=== PATIENT | female | born 1960 | race Caucasian/White ===

== ENCOUNTER 2020-11-08 13:17 | Outpatient (CLI) | payer MEDICARE, MEDICAID, SELFPAY ==
--- NOTE | 2020-11-08 13:48 | US_ITS ---
WS: [id number] ULTRASOUND THYROID TECHNIQUE: Ultrasound of the thyroid. CLINICAL INFORMATION: THYROID NODULE COMPARISON: None. FINDINGS: Thyroid: Right and left thyroid lobes are normal in size and echotexture. Several complex bilateral t hyroid nodules. Right thyroid lobe: 4.0 cm x 2.3 cm x 2.3 cm Largest right-sided nodule mid thyroid measures 15 x 8 x 8 mm with small microcalcifications. Additio nal similar-appearing mixed echogenicity subcentimeter nodules with echogenic calcifications. Nodule is suspicious for papillary thyroid carcinoma. Recommend FNA of the largest nodule. Left thyroid lobe: 3.6 cm x 1.8 cm x 1.7 cm. Largest hypoechoic solid left side lymph node in the mid thyroid measures 7.7 x 6.6 x 4.2 mm. Isthmus: 0.2 mm. Cervical lymphadenopathy: Normal appearing submandibular lymph nodes US/US thyroid 85989 IMPRESSION: 1. Solid mixed echogenicity right sided thyroid nodules the largest measuring 15 x 8 x 8 mm with small microcalcifications suspicious for papillary thyroid c arcinoma. Recommend further evaluation with ultrasound-guided biopsy. 2. Hypoechoic solid left sided nodule in the mid thyroid measures 7.7 x 6.6 x 4.2 mm. Recommend 12 month follow-up. 3. Additional subcentimeter satellite nodules in the right thyroid also with m ixed echogenicity and microcalcifications.
[2020-11-08 14:54] LABS: Basophils % 0.4 %; Eosinophils # 0.1 10^3/uL (0.0-0.8); Hematocrit 41.6 % (37.0-47.0); Hemoglobin 14.4 g/dL (11.5-15.3); Lymphocytes # 3.1 10^3/uL (0.8-4.8); Lymphocytes % 44.1 %; Mean Corpuscular HGB Conc 34.6 g/dL (30.0-36.0); Mean Corpuscular Hemoglobin 33.8 pg (28.0-34.0); Mean Corpuscular Volume 97.7 fL (81-99); Mean Platelet Volume 11.6 fL (7.4-10.4); Monocytes # 0.8 10^3/uL (0.2-0.9); Monocytes % 10.6 %; Neutrophils # 3.01 10^3/uL (1.8-7.7); Neutrophils % 42.6 %; Nucleated Red Blood Cells % 0 %; Platelet Count 217 10^3/cmm (130-400); Red Blood Count 4.26 10^6/uL (4.1-5.3); Red Cell Distribution Width 12.1 % (12.1-15.1); White Blood Count 7.1 10^3/uL (4.0-10.0)
[2020-11-08 15:13] LABS: Add Urine Microscopic? YES; Bilirubin Urine Neg (Negative); Blood Urine Neg (Negative); Glucose Urine UA Norm (Normal); Ketones Urine 1+ (Negative); Leukocyte Esterase Urine Negative (Negative); Nitrate Urine Negative (Negative); Protein Urine Neg (Negative); Urine Appearance Clear (CLEAR); Urine Color Yellow (Yellow); Urobilinogen Urine 1 mg/dL (Negative); pH Urine 7 (5-7)
[2020-11-08 15:20] LABS: Chol HDL Ratio 3.65 mg/dL (0.0-4.40); Cholesterol 157 mg/dL (0-200); HDL Cholesterol 43 mg/dL (60-100); LDL Cholesterol Calculated 83 mg/dL (50-129); LDL HDL Ratio 1.93 RATIO (0.00-3.22); Thyroid Stimulating Hormone 0.61 uIU/mL (0.27-4.20); Triglycerides 153 mg/dL (0-150)
[2020-11-08 16:07] LABS: Estmated Average Glucose 111; Hemoglobin A1C 5.5 % (4.0-6.0)
[2020-11-08 17:22] LABS: Add Urine Culture? No; Bacteria Urine TRACE /hpf; Mucus Urine 1+ /hpf; RBC Urine 0-4 /hpf (0-2); WBC Urine 0-4 /hpf (0-5)
[2020-11-15 09:21] LABS: Vit D 1,25 (Oh)2, Total 36 pg/mL (18-72); Vit D2 1,25 (Oh)2 <8 pg/mL; Vit D3 1,25 (Oh)2 36 pg/mL
== END 2020-11-08 13:18 | disposition home or self-care (01) ==
LOC: US 13:46
PROVIDERS: PCP Nurse Practitioner Family; Visit Provider Nurse Practitioner Family
DX: M79.7 Fibromyalgia (principal); M15.0 Primary generalized (osteo)arthritis; M85.80 Other specified disorders of bone density and structure, unspecified site; E04.9 Nontoxic goiter, unspecified
CPT/HCPCS: 36415; 76536; 80061; 81001; 82652; 83036; 84443; 85025

== ENCOUNTER → 2020-12-26 09:58 | Outpatient (BNVA) | payer MEDICARE, MEDICAID, SELFPAY | PROVIDERS: PCP Nurse Practitioner Family; Visit Provider Internal Medicine Rheumatology | DX: M25.50 Pain in unspecified joint (principal); M17.0 Bilateral primary osteoarthritis of knee; M79.7 Fibromyalgia; Z79.899 Other long term (current) drug therapy; Z11.59 Encounter for screening for other viral diseases; Z11.1 Encounter for screening for respiratory tuberculosis; Z71.89 Other specified counseling; F17.200 Nicotine dependence, unspecified, uncomplicated | CPT/HCPCS: 99204 ==

== ENCOUNTER 2020-12-31 10:58 | Outpatient (CLI) | payer MEDICARE, MEDICAID, SELFPAY ==
--- NOTE | 2020-12-31 11:13 | XR_ITS ---
WS: [email or web address] Exam: XR hand RT min 3V* [id number] Date/Time of Exam: 12/31/2020 11:45 AM Reason For Exam: M19.90 - Unspecified osteoarthritis, unspecified site No acute fracture or dislocation. There is moderate degenerative change in the IP joints. This is mos t severe in the DIP joint of the index finger with [id number] articulation. There is moderate degen erative change at the CMC joint of the thumb. No soft tissue foreign bodies are seen. Slight deformit y of the distal index finger. XR/XR hand RT min 3V* [id number] IMPRESSION: 1. Degenerative changes as detailed above. 2. No fracture or other significant finding.
--- NOTE | 2020-12-31 11:13 | XR_ITS ---
WS: [email or web address] Exam: XR knee RT 3V* [id number] Date/Time of Exam: 12/31/2020 11:45 AM Reason For Exam: M19.90 - Unspecified osteoarthritis, unspecified site No fracture or dislocation. The joint compartments are preserved. No joint effusion. Small bone infar ct seen along the distal femur. XR/XR knee RT 3V* 03146 IMPRESSION: 1. Negative right knee. 2. Small bone infarct seen in the distal femur
--- NOTE | 2020-12-31 11:13 | XR_ITS ---
WS: [email or web address] Exam: XR chest 2V* [id number] Date/Time of Exam: 12/31/2020 11:45 AM Reason For Exam: M79.7 - Fibromyalgia Comparison 04/17/2014. Findings: The lungs are clear and fully expanded. Costophrenic angles are sharp. No infiltrates. Bronchovascula r relief appears normal. Cardiac silhouette is unremarkable. Bony elements are intact. XR/XR chest 2V* [id number] IMPRESSION: Unremarkable chest radiograph.
--- NOTE | 2020-12-31 11:13 | XR_ITS ---
WS: [email or web address] Exam: XR foot RT min 3V* [id number] Date/Time of Exam: 12/31/2020 11:45 AM Reason For Exam: M19.90 - Unspecified osteoarthritis, unspecified site No acute fracture or dislocation. Degenerative narrowing of the first MP joint. No soft tissue foreig n bodies are seen. XR/XR foot RT min 3V* 73529 IMPRESSION: 1. Mild degenerative changes as above. 2. No fracture or other significant finding.
--- NOTE | 2020-12-31 11:13 | XR_ITS ---
WS: [email or web address] Exam: XR foot LT min 3V* 65051 Date/Time of Exam: 12/31/2020 11:45 AM Reason For Exam: M19.90 - Unspecified osteoarthritis, unspecified site No acute fracture or dislocation. There is mild degenerative change at the first MP joint. Soft tissu e prominence seen along the medial aspect of the great toe. 1 mm metallic soft tissue foreign body se en in the lateral plantar soft tissues of the forefoot. XR/XR foot LT min 3V* 46688 IMPRESSION: 1. No fracture or dislocation. Minimal degenerative changes. 2. Soft tissue swelling of the medial aspect of the great toe. 3. 1 mm soft tissue foreign body seen in the plantar soft tissues of the latera l forefoot.
--- NOTE | 2020-12-31 11:13 | XR_ITS ---
WS: [email or web address] Exam: XR hand LT min 3V* [id number] Date/Time of Exam: 12/31/2020 11:45 AM Reason For Exam: M19.90 - Unspecified osteoarthritis, unspecified site No acute fracture or dislocation. There are degenerative changes of the IP joints most severe involvi ng the DIP joint of the index finger. Moderate DJD at the CMC joint of the thumb. No soft tissue fore ign bodies are seen. XR/XR hand LT min 3V* [id number] IMPRESSION: 1. Degenerative changes as detailed above. 2. No fracture or dislocation noted.
--- NOTE | 2020-12-31 11:13 | XR_ITS ---
WS: [email or web address] Exam: XR knee LT 3V* [id number] Date/Time of Exam: 12/31/2020 11:45 AM Reason For Exam: M19.90 - Unspecified osteoarthritis, unspecified site No fracture or dislocation. The joint compartments are relatively well maintained. No joint effusion. Small bone infarcts seen in the lower femur and upper tibia. XR/XR knee LT 3V* [id number] IMPRESSION: 1. Unremarkable left knee. 2. Small bone infarcts seen in the upper tibia in the lower femur.
--- NOTE | 2020-12-31 11:13 | XR_ITS ---
WS: [email or web address] Exam: XR pelvis 1-2V* [id number] Date/Time of Exam: 12/31/2020 11:45 AM Reason For Exam: M19.90 - Unspecified osteoarthritis, unspecified site Findings: There is no sign of fracture or dislocation. Articular relationships are intact. Adjacent soft tiss ue structures are unremarkable. XR/XR pelvis 1-2V* 87644 Impression: Negative pelvis.
[2020-12-31 12:41] LABS: Basophils % 0.1 %; Hematocrit 40.4 % (37.0-47.0); Hemoglobin 13.4 g/dL (11.5-15.3); Lymphocytes # 2.1 10^3/uL (0.8-4.8); Lymphocytes % 23.9 %; Mean Corpuscular HGB Conc 33.2 g/dL (30.0-36.0); Mean Corpuscular Hemoglobin 32.8 pg (28.0-34.0); Mean Corpuscular Volume 98.8 fl (81-99); Mean Platelet Volume 12.4 fL (7.4-10.4); Monocytes # 0.6 10^3/uL (0.2-0.9); Monocytes % 7.3 %; Neutrophils # 5.93 10^3/uL (1.8-7.7); Nucleated Red Blood Cells % 0 %; Platelet Count 217 10^3/cmm (130-400); Red Blood Count 4.09 10^6/uL (4.1-5.3); Red Cell Distribution Width 12.2 % (12.1-15.1); White Blood Count 8.7 10^3/uL (4.0-10.0)
[2020-12-31 13:33] LABS: 25 Hydroxy Vitamin D 30 ng/mL (30-100); Alanine Aminotransferase 25 U/L (0-33); Albumin Level 4.2 g/dL (3.5-5.2); Alkaline Phosphatase 95 IU/L (35-105); Aspartate Amino Transferase 29 U/L (0-32); C Reactive Protein 2.2 mg/L (0.0-4.9); Globulin 2.1 g/dL (1.3-4.6); Total Bilirubin 0.2 mg/dL (0.15-1.2); Total Protein 6.3 g/dL (6.6-8.7)
[2020-12-31 13:43] LABS: Hepatitis B Core AB, Total Non-Reactive (Nonreactive); Hepatitis B Surface Antigen Non-Reactive (Nonreactive); Hepatitis C Virus Antibody Non-Reactive (Nonreactive)
[2020-12-31 14:24] LABS: Erythrocyte Sedimentation Rate 9 mm/hr (0-15)
[2021-01-01 11:41] LABS: COMPLEMENT COMPONENT C3C 106 mg/dL (83-193); COMPLEMENT COMPONENT C4C 13 mg/dL (15-57)
[2021-01-01 15:32] LABS: Cyclic Citrullinated Peptide <16 UNITS
[2021-01-02 15:36] LABS: COMPLEMENT, TOTAL (CH50) 41 U/mL (31-60)
[2021-01-02 17:23] LABS: Quantiferon Nil 0.01 IU/mL; Quantiferon TB Gold NEGATIVE (NEGATIVE)
[2021-01-03 12:47] LABS: THYROID PEROXIDASE ANTIBODIES <1 IU/mL (<9)
[2021-01-03 13:24] LABS: CENTROMERE B ANTIBODY <1.0 NEG AI (<1.0 NEG); JO-1 ANTIBODY <1.0 NEG AI (<1.0 NEG); RNP ANTIBODY <1.0 NEG AI (<1.0 NEG); SCL-70 ANTIBODY <1.0 NEG AI (<1.0 NEG); SJOGREN'S ANTIBODY (SS-A) <1.0 NEG AI (<1.0 NEG); SM ANTIBODY <1.0 NEG AI (<1.0 NEG); SS-B <1.0 NEG AI (<1.0 NEG)
[2021-01-04 12:38] LABS: ANA SCREEN, IFA POSITIVE (NEGATIVE)
[2021-01-08 12:26] LABS: DNA AB (DS) CRITHIDIA,IFA NEGATIVE (NEGATIVE)
== END 2020-12-31 10:59 | disposition home or self-care (01) ==
PROVIDERS: PCP Nurse Practitioner Family; Visit Provider Internal Medicine Rheumatology
DX: M19.90 Unspecified osteoarthritis, unspecified site (principal); M79.7 Fibromyalgia; K21.9 Gastro-esophageal reflux disease without esophagitis; Z79.899 Other long term (current) drug therapy; Z11.59 Encounter for screening for other viral diseases; Z11.1 Encounter for screening for respiratory tuberculosis
CPT/HCPCS: 36415; 71046; 72170; 73130; 73562; 73630; 80076; 82306; 82565; 85025; 85651; 86140; 86160; 86162; 86235; 86255; 86376; 86431; 86480; 86704; 86803; 87340

== ENCOUNTER 2021-01-31 08:40 | Emergency (ER) | payer MEDICARE, MEDICAID, SELFPAY ==
[2021-01-31 09:03] VITALS: BP 133/69; PULSE 72; RESP 16; TEMP 36.2; O2SAT 96; BMI 36.8
--- NOTE | 2021-01-31 09:12 | XR_ITS ---
WS: [email or web address] Right foot, 3 views, 01/31/2021 Clinical Data: injury with ecchymosis and swelling Comparison: Right foot, 12/31/2020. Findings: There is a fracture of the distal third of the right fifth metatarsal. No other fractures are seen. T he phalanges and tarsal bones are intact. The soft tissues are normal. There is minimal osteoarthritis of the right first MTP joint. XR/XR foot RT min 3V* [id number] Impression: Fracture of distal third of right fifth metatarsal.
--- NOTE | 2021-01-31 09:13 | ED_ITS ---
HPI - Extremity Problem General: Chief complaint: Extremity Injury, Lower Stated complaint: Pain in Rgt Foot Time Seen by Provider: 01/31/21 08:42 History of Present Illness: HPI Narrative: 60-year-old female comes to the ED with a right foot injury. Patient says this morning she got up early in the morning to take her dog out and she stopped on the threshold of the doorway causing her right foot pain. She states she felt a crack and went down to her knees due to the pain. She rates the pain currently a 10 out of 10. She cannot weight-bear on right foot since injury. Pain is located on the lateral aspect of the midfoot. Associated symptoms: Deny chest pain, fever(s) or rash Review of Systems Const: Denies: fever(s), chills or fatigue Eyes: Denies: change in vision or eye discomfort ENMT: Denies: throat pain, odynophagia, nasal discharge or nasal congestion Card: Denies: chest pain, palpitations, edema, swelling of feet/ankles, dyspnea on exertion or orthopnea Resp: Denies: dyspnea, productive cough or non-productive cough GI: Denies: abdominal pain, nausea, vomiting, diarrhea, constipation or hematochezia : Denies: flank pain, dysuria or hematuria Musc: Reports: extremity pain (Right foot) and extremity swelling (Right foot); Denies: neck pain or back pain Skin/Breast: Denies: rash or new lesions Neuro: Denies: headache(s), numbness in extremities or weakness in extremities PFSH ED PFSH: Medical History Depression Fibromyalgia GERD (gastroesophageal reflux disease) High risk medication use Hypertension IBS (irritable bowel syndrome) Immunization counseling Inflammatory arthritis Osteoarthritis Osteoarthritis of knees, bilateral Surgical History History of appendectomy Family History Other Cancer Diabetes Denies family history of CAD (coronary artery disease) Dementia Psychiatric illness Chronic kidney disease (CKD) Lung disease Stroke Social History Smoking and tobacco status: current every day smoker Alcohol intake: never Lives independently: Yes Household members: spouse and children Marital status: Physical Exam Const: COMMON NORMALS: no acute distress, patient oriented x3 and alert GENERAL APPEARANCE: cooperative and comfortable HENMT: COMMON NORMALS: normocephalic HEAD & SCALP: normocephalic MOUTH: Normal oral and palatal mucosa present THROAT: posterior oropharynx normal and uvula midline Neck/C-Spine: COMMON NORMALS: supple GENERAL: Yes normal visual inspection Resp: COMMON NORMALS: normal respiratory effort, No retractions, No use of accessory muscles and clear to auscultation bilaterally AUSCULTATION: clear to auscultation bilaterally Cardio: COMMON NORMALS: regular rate, regular rhythm, S1 normal heart sound present, S2 normal heart sound present, No gallops present (Cardio), No clicks present (Cardio), No murmurs present (Cardio) and Peripheral pulses 2+ throughout RATE: regular rate RHYTHM: regular rhythm HEART SOUNDS: S1 normal heart sound present and S2 normal heart sound present PERIPHERAL PULSES: Peripheral pulses 2+ throughout GI: COMMON NORMALS: Normal to inspection, nondistended, normoactive bowel sounds present, Soft to palpation, non-tender and no masses PALPATION: Yes Soft to palpation : COMMON NORMALS: Yes no CVA tenderness BLADDER/KIDNEY EXAM: Yes no CVA tenderness Back/Pelvis: COMMON NORMALS: no CVA tenderness Extremity: COMMON NORMALS: normal to inspection RIGHT LOWER EXTREMITY: Yes foot & digits Right foot and digits: Yes inspection (Ecchymosis and swelling to lateral midfoot region), Yes palpation (Tenderness to the lateral midfoot region), Yes ROM (Limited movement in digits due to pain.) and Yes neurovascular exam (Neurovascular tact.) Neuro: COMMON NORMALS: patient oriented x3 and moves all extremities SENSORIUM/ORIENTATION: Yes alert Skin: GENERAL SKIN EXAM: dry skin Course Vital Signs: Vital signs: Vital Signs Temperature 97.1 F L 01/31/21 09:03 Pulse Rate 68 01/31/21 10:28 Respiratory Rate 16 01/31/21 10:28 Blood Pressure 150/96 01/31/21 10:28 Pulse Oximetry 95 01/31/21 10:28 MDM - Extremity (Nontraumatic) MDM Narrative: Medical decision making narrative: Patient is a 60-year-old female comes to the ED with right foot pain. Patient has some swelling and e cchymosis to the lateral midfoot region. Neurovascular tact. X-ray shows fracture of distal third of right fifth metatarsal. I placed order with case management for patient be referred to the maintenance job titles Dr. Acevedo. Patient diagnosed with metatarsal fracture of the right foot. Patient was put in a boot and given crutches and discharged with a prescription for hydrocodone for pain. Return to ED precautions given. Patient was told that case management will contact them the next several days to set up an appointment with the maintenance job titles. Patient understood agree with plan. Imaging Data^: Xray Ortho: Attestation: I personally reviewed and interpreted this imaging study as follows: Radiologist's impression: [facility] [employer] [facility] [place] [address] XRay Report Signed Patient: Mel Calderon Unit #: [id number] : [id number] Age/Sex: 60 / F ADM Date: 01/31/21 Loc: ER Room/Bed: Attending Dr: Ordering Provider/Ordering MD: Umang Brown Date of Service: 01/31/21 Procedure(s): XR foot RT min 3V* 47585 Accession Number(s): [id number] Report Number: [id number] WS: [email or web address] Right foot, 3 views, 01/31/2021 Clinical Data: injury with ecchymosis and swelling Comparison: Right foot, 12/31/2020. Findings: There is a fracture of the distal third of the right fifth metatarsal. No other fractures are seen. The phalanges and tarsal bones are intact. The soft tissues are normal. There is minimal osteoarthritis of the right first MTP joint. XR/XR foot RT min 3V* 15850 Impression: Fracture of distal third of right fifth metatarsal. Dictated By: Saloni Sneed MD Signed By: Saloni Sneed MD Signed Date/Time: 01/31/21926 DD/ 5 Discharge Plan Discharge Patient Disposition: Home Clinical Impression: Metatarsal bone fracture Qualifiers: Encounter type: initial encounter Metatarsal bone: fifth Fracture type: closed Fracture alignment: nondisplaced Laterality: right Qualified Code(s): S92.354A - Nondisplaced fracture of fifth metatarsal bone, right foot, initial encounter for closed fracture Condition: Stable Prescriptions: No Action pregabalin [Lyrica] 50 mg capsule 50 mg PO DAILY RF: 0 tramadol 50 mg tablet 50 mg PO TID PRNRF: 0 hydroxychloroquine 200 mg tablet 200 mg PO BID Qty: 60 RF: 3 pantoprazole 40 mg tablet,delayed release (DR/EC) See Rx Instructions PO DAILY Qty: 30 RF: 3 prednisone 10 mg tablet See Rx Instructions PO DAILY Qty: 30 RF: 1 diltiazem HCl 180 mg capsule,extended release 24 hr 180 mg PO DAILY RF: 0 furosemide 20 mg tablet 20 mg PO DAILY RF: 0 cetirizine 10 mg tablet 10 mg PO DAILY PRNRF: 0 metoprolol tartrate 50 mg tablet 50 mg PO DAILY RF: 0 prednisone 10 mg tablet See Rx Instructions PO DAILY Qty: 65 RF: 1 folic acid 1 mg tablet 1 mg PO DAILY Qty: 90 RF: 3 methotrexate sodium 2.5 mg tablet See Rx Instructions PO .Q7days Qty: 30 RF: 0 baclofen 10 mg tablet 10 mg PO TID PRN (Reason: severe pain/spasms) Qty: 90 RF: 0 Discharge Orders: Discharge ED (Routine); Ordered 01/31/21 Ordered By: Umang Brown Referrals: Adilene Jamison OUTSIDE SALES EXECUTIVE [Primary Care Provider] - Discharge Diet: Regular Discharge Activity: Limit activity as instructed and Use walker/crutches as instructed Patient Instructions: Foot Fracture in Adults (ED), Opioid Safety Activity Restrictions/Additional Instructions: Follow-up with medical provider as directed. Case management will be contacting you in the next several days set up an appointment with Dr. Acevedo the maintenance job titles for reevaluation. Wear boot/stiff soled shoe when up and ambulating. Use crutches as needed to help with ambulation. Take medications as prescribed. Return to the ER or your medical provider if condition worsens. Please read and understand discharge instructions. Thank you for choosing [facility] for your healthcare needs today. Please realize this is an emergency room and that we are providing you with a medical screening exam and this may not be complete and all inclusive of all the testing and or work up that you may need to determine your ailment or severity of your illness. It is very important that you follow up as instructed or that you return to the Emergency Department should you have concerns or if your condition changes or worsens in any way. Coding Level of Care Code ED Human Machine Interface Engineer for Viridiana Fwdiego Exam Comprehensive
[2021-01-31] MEDS: HYDROcodone-acetaminophen 5-325 mg Tablet 1 TAB PO (09:44)
[2021-01-31 09:45] VITALS: BP 127/46; PULSE 73; RESP 18; O2SAT 92
--- NOTE | 2021-01-31 10:01 | DCPLANNER ---
information systems manager had message to schedule a follow up appointment for patient with ortho. information systems manager called the ortho clinic, spoke with Jeane, gave clinic patients information. information systems manager was told that patients information would be printed and reviewed. Clinic will call patient with appointment information.
--- NOTE | 2021-01-31 10:04 | DCPLANNER ---
arts manager had message to schedule a follow up appointment for patient with ortho. arts manager called the ortho clinic, spoke with Jeane, gave clinic patients information. arts manager was told that patients information would be printed and reviewed. Clinic will call patient with appointment information.
[2021-01-31 10:28] VITALS: BP 150/96; PULSE 68; RESP 16; O2SAT 95
--- NOTE | 2021-02-01 10:31 | DCPLANNER ---
Patient has a followup appointment scheduled for Monday, February 01, 2021 at 1:[address] Acevedo at [facility]. Clinic will call patient with appointment information.
--- NOTE | 2021-03-21 14:01 | DCPLANNER ---
Patient had a follow up appointment scheduled for 02.01.[address] Acevedo at [facility] - patient did attend appointment.
== END 2021-01-31 10:28 | disposition home or self-care (01) ==
PROVIDERS: Emergency Provider Physician Assistant; PCP Nurse Practitioner Family
DX: S92.354A Nondisplaced fracture of fifth metatarsal bone, right foot, initial encounter for closed fracture (principal); I10 Essential (primary) hypertension; F17.210 Nicotine dependence, cigarettes, uncomplicated; X58.XXXA Exposure to other specified factors, initial encounter
CPT/HCPCS: 73630; 99283; E0114

== ENCOUNTER 2021-02-01 14:20 | Outpatient (CLI) | payer MEDICARE, MEDICAID, SELFPAY | END 2021-02-01 14:21 | disposition home or self-care (01) | LOC: SPT 14:21 | PROVIDERS: PCP Nurse Practitioner Family; Visit Provider Podiatrist Foot & Ankle Surgery | DX: Z46.89 Encounter for fitting and adjustment of other specified devices (principal); S92.354D Nondisplaced fracture of fifth metatarsal bone, right foot, subsequent encounter for fracture with routine healing; X58.XXXD Exposure to other specified factors, subsequent encounter | CPT/HCPCS: 97760; L4361 ==

== ENCOUNTER → 2021-03-06 12:57 | Outpatient (BNVA) | payer MEDICARE, MEDICAID, SELFPAY | PROVIDERS: PCP Nurse Practitioner Family; Visit Provider Podiatrist Foot & Ankle Surgery | DX: S92.354D Nondisplaced fracture of fifth metatarsal bone, right foot, subsequent encounter for fracture with routine healing (principal); X58.XXXD Exposure to other specified factors, subsequent encounter | CPT/HCPCS: 73630 ==

== ENCOUNTER → 2021-03-26 13:55 | Outpatient (BNVA) | payer MEDICARE, MEDICAID, SELFPAY | PROVIDERS: PCP Nurse Practitioner Family; Visit Provider Podiatrist Foot & Ankle Surgery | DX: S92.354D Nondisplaced fracture of fifth metatarsal bone, right foot, subsequent encounter for fracture with routine healing (principal); X58.XXXD Exposure to other specified factors, subsequent encounter | CPT/HCPCS: 73630 ==

== ENCOUNTER 2021-04-19 10:57 | Outpatient (CLI) | payer MEDICARE, MEDICAID, SELFPAY ==
--- NOTE | 2021-04-19 11:03 | FL_ITS ---
WS: [email or web address] MODIFIED BARIUM SWALLOW HISTORY: Other dysphagia FLUOROSCOPY TIME: 2.5 minutes. Modified barium swallow was performed by the speech pathologist. Fluoroscopy was provided with the pa tient in a lateral projection. Multiple food consistencies were provided. Patient was able to swallow all food consistencies without difficulty. No aspiration or laryngeal pen etration. Due to new dentures patient was only able to swallow and prepare bolus of small amounts of food. Barium tablet was also swallowed without difficulty. FL/FL barium swallow modifd 29019 IMPRESSION: 1. No aspiration or laryngeal penetration. 2. Very slight delay in swallowing and forming a food bolus. Please see speech therapist report also for recommendations.
== END 2021-04-19 10:58 | disposition home or self-care (01) ==
LOC: RAD 10:59
PROVIDERS: PCP Nurse Practitioner Family; Visit Provider Otolaryngology
DX: R13.10 Dysphagia, unspecified (principal)
CPT/HCPCS: 74230; 92611

== ENCOUNTER 2021-04-26 08:17 | Outpatient (CLI) | payer MEDICARE, MEDICAID, SELFPAY ==
--- NOTE | 2021-04-26 08:30 | US_ITS ---
WS: [email or web address] ULTRASOUND-GUIDED RIGHT THYROID NODULE FNA HISTORY: RIGHT thyroid nodule. Procedure, risks, and complications were explained to the patient. Consent has been obtained. Prior imaging study 11/08/2020 reviewed. The skin is cleansed with ChloraPrep and anesthetized with 1% buffered lidocaine. FNA performed with 25 gauge needles. electronic technologist is present to fix slides. Note: This nodule is highly suspicious for papillary thyroid carcinoma. There are a few additional ve ry small nodules within the RIGHT thyroid that are similar in appearance to the larger nodule. If thi s nodule is not positive for carcinoma consider surgical removal or imaging close follow-up. US/US biopsy/FNA thyroid 63160 IMPRESSION: Uncomplicated FNA of a RIGHT thyroid nodule. Final pathology results pending.
== END 2021-04-26 08:18 | disposition home or self-care (01) ==
LOC: RAD 08:23
PROVIDERS: PCP Nurse Practitioner Family; Visit Provider Otolaryngology
DX: E04.2 Nontoxic multinodular goiter (principal); R13.10 Dysphagia, unspecified
CPT/HCPCS: 10005; 88173; 88305

== ENCOUNTER 2021-05-21 09:35 | Outpatient (CLI) | payer MEDICARE, MEDICAID, SELFPAY ==
[2021-05-21 10:25] LABS: Basophils % 0.3 %; Eosinophils % 0.2 %; Hematocrit 44.2 % (37.0-47.0); Hemoglobin 14.5 g/dL (11.5-15.3); Lymphocytes # 2.2 10^3/uL (0.8-4.8); Lymphocytes % 21.9 %; Mean Corpuscular HGB Conc 32.8 g/dL (30.0-36.0); Mean Corpuscular Hemoglobin 33.3 pg (28.0-34.0); Mean Corpuscular Volume 101.6 fl (81-99); Mean Platelet Volume 11.6 fL (7.4-10.4); Monocytes # 0.8 10^3/uL (0.2-0.9); Monocytes % 7.5 %; Neutrophils # 6.95 10^3/uL (1.8-7.7); Neutrophils % 69.7 %; Nucleated Red Blood Cells % 0 %; Platelet Count 261 10^3/cmm (130-400); Red Blood Count 4.35 10^6/uL (4.1-5.3); Red Cell Distribution Width 12.9 % (12.1-15.1)
[2021-05-21 10:45] LABS: Alanine Aminotransferase 17 U/L (0-33); Albumin Level 4.3 g/dL (3.5-5.2); Alkaline Phosphatase 91 IU/L (35-105); Aspartate Amino Transferase 25 U/L (0-32); C Reactive Protein 0.4 mg/L (0.0-4.9); Glomerular Filtration Rate 84.8 mL/min (90-130); Total Bilirubin 0.3 mg/dL (0.15-1.2); Total Protein 6.3 g/dL (6.6-8.7)
== END 2021-05-21 09:36 | disposition home or self-care (01) ==
LOC: LAB 10:11
PROVIDERS: PCP Nurse Practitioner Family; Visit Provider Internal Medicine Rheumatology
DX: M19.90 Unspecified osteoarthritis, unspecified site (principal); Z79.899 Other long term (current) drug therapy
CPT/HCPCS: 36415; 80076; 82565; 85025; 86140

== ENCOUNTER 2021-07-10 09:05 | Outpatient (CLI) | payer MEDICARE, MEDICAID, SELFPAY ==
--- NOTE | 2021-07-10 | XR_ITS ---
WS: [email or web address] Right shoulder, 4 views, 07/10/2021 Clinical Data: TRAUMA, FALL, RIGHT SHOULDER AND HUMERUS PAIN Comparison: None. Findings: No fractures or dislocations are seen. The AC joint is normal. The adjacent right clavicle, right sca pula and ribs are normal. The soft tissues are unremarkable. XR/XR shoulder RT min 2V* 31778 Impression: Negative right shoulder.
--- NOTE | 2021-07-10 | XR_ITS ---
WS: [email or web address] Right arm and humerus, 2 views, 07/10/2021 Clinical Data: TRAUMA, FALL, RIGHT SHOULDER AND HUMERUS PAIN Comparison: None. Findings: No fractures or dislocations are seen. The shaft of the humerus is intact. The soft tissues are norm al. XR/[place] [id number] Impression: Negative right arm and humerus.
--- NOTE | 2021-07-10 09:39 | XR_ITS ---
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 Findings: No fractures or dislocations are seen. The SI joints and pubic symphysis are intact. The soft tissues are not remarkable. The hips are normal. The bladder is partly full. XR/XR pelvis 1-2V* 31887 Impression: Negative for fracture.
--- NOTE | 2021-07-10 09:39 | XR_ITS ---
WS: [email or web address] Lumbar spine, 3 views, 07/10/2021 Clinical Data: Z79.899 - Other alf (current) drug therapy Comparison: Lateral lumbar spine, 03/04/2017. Findings: No compression fractures or subluxation is seen. No disc space narrowing is seen. The transverse proc esses and SI joints are normal. There is minimal anterior superior osteoarthritic spurring L3-L5 No limitation of motion or subluxation on flexion or extension is seen. XR/XR lumbar spine 2-3V* 22034 Impression: 1. Minimal spurring at the anterior superior margins of L-1-L5. 2. Negative for limitation of motion or subluxation on flexion or extension.
== END 2021-07-10 09:06 | disposition home or self-care (01) ==
PROVIDERS: PCP Nurse Practitioner Family; Referring Provider Nurse Practitioner Family; Visit Provider Internal Medicine Rheumatology
DX: M25.511 Pain in right shoulder (principal); M25.521 Pain in right elbow; Z79.899 Other long term (current) drug therapy; M06.9 Rheumatoid arthritis, unspecified
CPT/HCPCS: 72100; 72170; 73030; 73060

== ENCOUNTER → 2021-07-25 09:00 | Outpatient (BNVA) | payer MEDICARE, MEDICAID, SELFPAY | PROVIDERS: PCP Nurse Practitioner Family; Visit Provider Internal Medicine Rheumatology | DX: M05.79 Rheumatoid arthritis with rheumatoid factor of multiple sites without organ or systems involvement (principal); M47.816 Spondylosis without myelopathy or radiculopathy, lumbar region; Z79.899 Other long term (current) drug therapy; M79.7 Fibromyalgia; Z71.89 Other specified counseling | CPT/HCPCS: 99214 ==

== ENCOUNTER 2022-01-16 12:53 | Outpatient (CLI) | payer MEDICARE, MEDICAID, SELFPAY ==
[2022-01-16 13:43] LABS: Basophils % 0.2 %; Eosinophils % 0.1 %; Hematocrit 43.7 % (37.0-47.0); Hemoglobin 14.4 g/dL (11.5-15.3); Lymphocytes # 1.7 10^3/uL (0.8-4.8); Mean Corpuscular Hemoglobin 34.4 pg (28.0-34.0); Mean Corpuscular Volume 104.5 fl (81-99); Mean Platelet Volume 11.5 fL (7.4-10.4); Monocytes # 0.9 10^3/uL (0.2-0.9); Neutrophils # 8.04 10^3/uL (1.8-7.7); Nucleated Red Blood Cells % 0 %; Platelet Count 249 10^3/cmm (130-400); Red Blood Count 4.18 10^6/uL (4.1-5.3); Red Cell Distribution Width 13.1 % (12.1-15.1); White Blood Count 10.7 10^3/uL (4.0-10.0)
[2022-01-16 14:05] LABS: Alanine Aminotransferase 21 U/L (0-33); Albumin Level 4.4 g/dL (3.5-5.2); Alkaline Phosphatase 98 U/L (35-105); Aspartate Amino Transferase 26 U/L (0-32); Globulin 2.2 g/dL (1.3-4.6); Glomerular Filtration Rate 72.4 mL/min (90-130); Total Bilirubin 0.2 mg/dL (0.15-1.2); Total Protein 6.6 g/dL (6.6-8.7)
== END 2022-01-16 12:54 | disposition home or self-care (01) ==
LOC: LAB 12:53
PROVIDERS: PCP Internal Medicine; Visit Provider Internal Medicine Rheumatology
DX: M05.79 Rheumatoid arthritis with rheumatoid factor of multiple sites without organ or systems involvement (principal); M17.0 Bilateral primary osteoarthritis of knee; M47.816 Spondylosis without myelopathy or radiculopathy, lumbar region; M79.7 Fibromyalgia; M89.8X0 Other specified disorders of bone, multiple sites; Z79.899 Other long term (current) drug therapy
CPT/HCPCS: 80076; 82565; 85025; 86140; 99214

== ENCOUNTER 2022-05-14 09:56 | Emergency (ER) | payer MEDICARE, MEDICAID, SELFPAY ==
[2022-05-14 09:59] VITALS: BP 123/76; PULSE 80; RESP 17; TEMP 36.6; O2SAT 96; BMI 36.0
--- NOTE | 2022-05-14 10:15 | XR_ITS ---
WS: [email or web address] Left shoulder, 2 views, 05/14/2022 Clinical Data: pain/injury? Comparison: None. Findings: No fractures or dislocations are seen. The AC joint is normal. The adjacent left clavicle, left scapu la and ribs are normal. The soft tissues are unremarkable. XR/XR shoulder LT min 2V* 04081 Impression: Negative left shoulder.
--- NOTE | 2022-05-14 10:23 | W.ED.EXTPRO ---
HPI - Extremity Problem General: Chief complaint: Extremity Problem,Nontraumatic Stated complaint: left shoulder injury Time Seen by Provider: 05/14/22 10:06 Source: patient Mode of arrival: ambulatory Limitations: no limitations History of Present Illness: Patient is a nice 61-year-old female presents to ED today with a complaint of left shoulder pain that initially began gradually approximately 3 weeks ago. She states she initially attributed it to RA pain. She has been treating with ice/heat without much relief in her discomfort. Patient states over the past 2 to 3 days pain has become pretty unbearable. She states significant discomfort with any form of range of motion. She has not noticed any redness, swelling to her extremity. She does not have any neck discomfort. Is not having any radicular symptoms down into her arm. Reports one previous similar episode 7 years ago in which she received an intra-articular steroid injection which was beneficial. MD Complaint: joint pain Onset (ago): week(s) Pain Consistency: constant Location: left and upper extremity (shoulder) Radiation: none Relieving factors: immobilization Exacerbating factors: range of motion Associated symptoms: Reports no associated symptoms; Deny chest pain, fever(s) or rash Review of Systems Const: Denies: fever(s), chills, body aches, fatigue or malaise Card: Denies: chest pain Resp: Denies: dyspnea Musc: Reports: joint pain (L shoulder); Denies: neck pain, back pain, extremity pain, extremity swelling, joint swelling, joint redness or joint warmth Skin/Breast: Denies: rash Neuro: Denies: headache(s), numbness in extremities, weakness in extremities or sensory changes [facility] ED PFSH: Medical History Bronchitis Degenerative joint disease (DJD) of lumbar spine Depression Fibromyalgia GERD (gastroesophageal reflux disease) High risk medication use Hypertension IBS (irritable bowel syndrome) Immunization counseling Inflammatory arthritis Osteoarthritis Seropositive rheumatoid arthritis of multiple sites Surgical History History of appendectomy Family History Other Cancer Diabetes Denies family history of CAD (coronary artery disease) Dementia Psychiatric illness Chronic kidney disease (CKD) Lung disease Stroke Social History Smoking and tobacco status: never smoked Alcohol intake: never Lives independently: Yes Household members: spouse and children Marital status: Physical Exam Const: COMMON NORMALS: no acute distress, patient oriented x3, no limitations and alert GENERAL APPEARANCE: cooperative NUTRITIONAL APPEARANCE: overweight ORIENTATION/CONSCIOUSNESS: Yes awake, Yes oriented to person, Yes oriented to place and Yes oriented to time HENMT: COMMON NORMALS: normocephalic and atraumatic HEAD & SCALP: normal to inspection, normocephalic and atraumatic Neck/C-Spine: COMMON NORMALS: full ROM GENERAL: Yes normal visual inspection CERVICAL SPINE: Yes cervical ROM normal, No pain with cervical ROM, No Cervical spine tenderness, No step off deformity, No Paracervical muscle tenderness and No Paracervical spasm Resp: COMMON NORMALS: normal respiratory effort and clear to auscultation bilaterally AUSCULTATION: clear to auscultation bilaterally Back/Pelvis: COMMON NORMALS: thoracic and lumbar spine normal to inspection, no thoracic nor lumbar tenderness and thoraco-lumbar ROM normal Extremity: COMMON NORMALS: capillary refill normal GENERAL: Yes normal exam except as noted LEFT UPPER EXTREMITY: Yes shoulder joint Left shoulder joint: Yes inspection (normal gross inspection of shoulder joint), Yes ROM (limited ROM in all rivas secondary to pain) and Yes neurovascular exam (normal) OTHER: discomfort elicited to superior medial edge of scapula as well as anterior glenohumeral joint line with ROM; NV intact Neuro: COMMON NORMALS: patient oriented x3, moves all extremities, no focal motor deficits and no sensory deficits noted SENSORIUM/ORIENTATION: Yes alert, Yes oriented to person, Yes oriented to place and Yes oriented to time Skin: COMMON NORMALS: no rashes or lesions noted GENERAL SKIN EXAM: no rashes or lesions noted Course Vital Signs: Vital signs: Vital Signs Temperature 97.8 F 05/14/22 09:59 Pulse Rate 80 05/14/22 09:59 Respiratory Rate 17 05/14/22 09:59 Blood Pressure 123/76 05/14/22 09:59 Pulse Oximetry 96 05/14/22 09:59 Oxygen Delivery Me thod 05/14/22 09:59 MDM - Extremity (Nontraumatic) Medical Decision Making XR read is negative. Will place patient on a Medrol Dosepak. She has been taking 800mg of Ibuprofen as well as her normal pain medications of Tramadol and/or Hydrocodone. She can continue these. She has an appointment with her PCP Dr. Rojas tomorrow that she can use her follow-up. Lab Data Radiology Impressions Shoulder X-Ray 05/14/22 10:15 Impression: Negative left shoulder. Discharge Plan Discharge Patient Disposition: Home Clinical Impression: Acute pain of left shoulder Condition: Stable Prescriptions: New Medrol (Corbin) 4 mg tablets,dose pack See Rx Instructions .ROUTE .COMPLEX Qty: 21 0RF Rx Instructions: orally per package directions No Action capsaicin 0.075 % cream 1 applic topical TID Qty: 57 0RF Rx Instructions: do not wash area for at least 30 min after application diltiazem HCl 180 mg capsule,extended release 24 hr 180 mg PO DAILY furosemide 20 mg tablet 20 mg PO DAILY PRN (Reason: Edema) metoprolol tartrate 50 mg tablet 50 mg PO DAILY hydrocodone-acetaminophen 5-325 mg tablet 1 tab PO Q6H PRN (Reason: pain) 7 Days Qty: 40 0RF Humira Pen 40 mg/0.8 mL pen injector kit 40 mg SUBCUT Q7D Qty: 4 3RF ibuprofen 800 mg tablet 800 mg PO TID PRN (Reason: PAIN) albuterol sulfate 2.5 mg /3 mL (0.083 %) solution for nebulization 2.5 mg inhalation Q4H PRN (Reason: shortness of breath or wheezing) Qty: 90 0RF benzonatate 200 mg capsule 200 mg PO BID PRN (Reason: cough) Qty: 30 0RF clonazepam 1 mg tablet 1 mg PO BID Qty: 60 5RF fluoxetine 60 mg tablet 60 mg PO QAM Qty: 90 3RF cetirizine 10 mg tablet 10 mg PO DAILY PRN (Reason: Allergy Symptoms) Qty: 90 3RF baclofen 10 mg tablet 10 mg PO TID PRN (Reason: Spasms) Qty: 90 3RF Rx Instructions: TAKE 1 TABLET BY MOUTH THREE TIMES DAILY NEEDED FOR SEVERE PAIN OR SPASMS nystatin 100,000 unit/mL suspension See Rx Instructions .ROUTE .COMPLEX Qty: 140 0RF Dose Instruction: SWISH & SWALLOW 5 ML BY MOUTH 4 TIMES DAILY FOR 7 DAYS Rx Instructions: SWISH & SWALLOW 5 ML BY MOUTH 4 TIMES DAILY FOR 7 DAYS prednisone 10 mg tablet 10 mg PO DAILY Qty: 90 1RF hydrocodone-acetaminophen 5-325 mg tablet 1 tab PO Q6H PRN (Reason: pain) 30 Days Qty: 60 0RF Discharge Orders: Discharge ED (Routine); Ordered 05/14/22 Ordered By: Xiomy Banda Referrals: Pk Rojas MD [Primary Care Provider] - Activity Restrictions/Additional Instructions: You may continue taking 800 mg of ibuprofen like you have been doing in addition to your tramadol/hydrocodone as needed for severe pain. I am placing you on a Medrol Dosepak today. Please follow-up with Dr. Rojas tomorrow as scheduled. 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
[2022-05-14] MEDS: dexamethasone 10 mg/mL INJ 8 MG IM (10:45)
== END 2022-05-14 10:50 | disposition home or self-care (01) ==
PROVIDERS: Emergency Provider Physician Assistant; PCP Internal Medicine
DX: M25.512 Pain in left shoulder (principal); I10 Essential (primary) hypertension
CPT/HCPCS: 73030; 96372; 99284; J1100

== ENCOUNTER → 2022-07-09 08:54 | Outpatient (BNVA) | payer MEDICARE, MEDICAID, SELFPAY | PROVIDERS: PCP Internal Medicine; Visit Provider Internal Medicine Rheumatology | DX: M05.79 Rheumatoid arthritis with rheumatoid factor of multiple sites without organ or systems involvement (principal); Z79.899 Other long term (current) drug therapy; M47.816 Spondylosis without myelopathy or radiculopathy, lumbar region; M19.90 Unspecified osteoarthritis, unspecified site | CPT/HCPCS: 99214 ==

== ENCOUNTER → 2022-10-15 12:28 | Outpatient (BNVA) | payer MEDICARE, MEDICAID, SELFPAY | PROVIDERS: PCP Internal Medicine; Visit Provider Internal Medicine Rheumatology | DX: M05.79 Rheumatoid arthritis with rheumatoid factor of multiple sites without organ or systems involvement (principal); Z79.899 Other long term (current) drug therapy; M47.816 Spondylosis without myelopathy or radiculopathy, lumbar region; M19.90 Unspecified osteoarthritis, unspecified site | CPT/HCPCS: 99214 ==

== ENCOUNTER 2022-10-17 10:10 | Outpatient (CLI) | payer MEDICARE, MEDICAID, SELFPAY ==
[2022-10-17 10:29] LABS: Basophils % 0.4 %; Eosinophils % 0.3 %; Hematocrit 43.9 % (37.0-47.0); Hemoglobin 14.8 g/dL (11.5-15.3); Lymphocytes # 1.7 10^3/uL (0.8-4.8); Mean Corpuscular HGB Conc 33.7 g/dL (30.0-36.0); Mean Corpuscular Hemoglobin 35.2 pg (28.0-34.0); Mean Corpuscular Volume 104.3 fl (81-99); Mean Platelet Volume 11.1 fL (7.4-10.4); Monocytes # 0.4 10^3/uL (0.2-0.9); Neutrophils # 7.05 10^3/uL (1.8-7.7); Neutrophils % 76.9 %; Nucleated Red Blood Cells % 0 %; Platelet Count 228 10^3/cmm (130-400); Red Blood Count 4.21 10^6/uL (4.1-5.3); White Blood Count 9.2 10^3/uL (4.0-10.0)
--- NOTE | 2022-10-17 10:47 | XR_ITS ---
WS: [id number] Thoracic spine, 3 views, 10/17/2022 Clinical Data: M05.79 - Rheumatoid arthritis with rheumatoid factor of m... Comparison: None. Findings: No compression fractures are seen. The disc heights are normal. Osteoarthritic change of the thoracic vertebral bodies is minimal. There is a slight dextroscoliosis the upper thoracic spine. XR/XR thoracic spine 3V* [id number] Impression: Slight dextroscoliosis and minimal osteoarthritis of the thoracic spine.
[2022-10-17 10:50] LABS: Alanine Aminotransferase 15 U/L (0-33); Albumin Level 4.3 g/dL (3.5-5.2); Alkaline Phosphatase 89 U/L (35-105); Aspartate Amino Transferase 25 U/L (0-32); Globulin 2.1 g/dL (1.3-4.6); Glomerular Filtration Rate 84.5 mL/min (90-130); Total Bilirubin 0.2 mg/dL (0.15-1.2); Total Protein 6.4 g/dL (6.6-8.7)
== END 2022-10-17 10:11 | disposition home or self-care (01) ==
LOC: RAD 10:13
PROVIDERS: PCP Internal Medicine; Visit Provider Internal Medicine Rheumatology
DX: M05.79 Rheumatoid arthritis with rheumatoid factor of multiple sites without organ or systems involvement (principal); Z79.899 Other long term (current) drug therapy; M41.84 Other forms of scoliosis, thoracic region; M47.814 Spondylosis without myelopathy or radiculopathy, thoracic region
CPT/HCPCS: 36415; 72072; 80076; 82565; 85025; 86140

== ENCOUNTER → 2022-10-22 09:19 | Outpatient (BNVA) | payer MEDICARE, MEDICAID, SELFPAY | PROVIDERS: PCP Internal Medicine; Visit Provider Otolaryngology | DX: E04.1 Nontoxic single thyroid nodule (principal); R53.83 Other fatigue; R63.5 Abnormal weight gain; E04.2 Nontoxic multinodular goiter | CPT/HCPCS: 36415; 84439; 84443; 84480; 84481 ==

== ENCOUNTER → 2022-10-22 09:19 | Outpatient (BNVA) | payer MEDICARE, MEDICAID, SELFPAY | PROVIDERS: PCP Internal Medicine; Visit Provider Otolaryngology | DX: E04.1 Nontoxic single thyroid nodule (principal); E04.2 Nontoxic multinodular goiter; R53.83 Other fatigue; R63.5 Abnormal weight gain; Z68.34 Body mass index [BMI] 34.0-34.9, adult | CPT/HCPCS: 36415; 84439; 84443; 84480; 84481; 99214 ==

== ENCOUNTER 2022-11-24 08:25 | Outpatient (CLI) | payer MEDICARE, MEDICAID, SELFPAY ==
--- NOTE | 2022-11-24 | USR_ITS ---
PROCEDURE INFORMATION: Exam: US Soft Tissue Head and Neck, Thyroid Exam date and time: 11/24/2022 8:48 AM Age: 61 years old Clinical indication: Other: Thyroid nodule TECHNIQUE: Imaging protocol: Real-time ultrasound scan of the neck with image documentation. Exam focused on the thyroid. COMPARISON: US biopsy/FNA thyroid [id number] 04/26/2021 and thyroid ultrasound 11/08/2020. FINDINGS: The right lobe measures 4.2 x 1.8 x 2.5 cm. The left lobe measures 3.8 x 1.7 x 1.9 cm. The isthmus measures about 2 mm in thickness. There is a 6.0 x 6.5 x 4.2 mm hypoechoic nodule in the lower half of the left lobe which is slightly smaller than on the prior examination and likely benign. There is a 12.5 by 7.2 x 6.2 mm solid hypoechoic nodule in the upper pole of the right lobe which reportedly was biopsied. It is smaller than on the prior exam. A previously seen much smaller nodule near this larger nodule is not clearly appreciated on the current exam. No other significant findings. US/US thyroid [id number] IMPRESSION: Previously seen bilateral nodules are smaller. The right-sided nodule was reportedly biopsied. No new findings.
== END 2022-11-24 08:26 | disposition home or self-care (01) ==
LOC: RAD 08:27
PROVIDERS: PCP Internal Medicine; Visit Provider Otolaryngology
DX: E04.1 Nontoxic single thyroid nodule (principal)
CPT/HCPCS: 36415; 76536; 84439; 84443; 84480; 84481

== ENCOUNTER 2022-12-25 08:57 | Outpatient (CLI) | payer MEDICARE, MEDICAID, SELFPAY ==
--- NOTE | 2022-12-25 09:10 | CT_ITS ---
WS: [id number] CT LEFT FEMUR, WITH CONTRAST. HISTORY: MASS OF LEFT THIGH Technique: All CT scans at [facility] use at least one of these dose optimization techniques: automated exposure control; mA and/or kV adjustment per patient size (includes targeted exams where dose is matched to clinical indication); or iterative reconstruction. DLP: 1147.89 mGy.cm COMPARISON: None available. Contrast: Omnipaque 350; 95 mL IV. Soft tissue markers are placed indicating the area of the palpable mass. There is a well-circumscribed lipomatous mass within the mid rectus femoris muscle extending over a l ength of 7.0 cm and transversely by 4.0 cm. There is no nodularity or significant abnormal enhancemen t. No adjacent soft tissue inflammation or adenopathy. No additional mass is identified. The area ind icated by the markers is much larger size than this lipoma. There is additional fatty atrophy in the muscle surrounding the left hip. No enhancing masses are nicole ntified. No abscess. Small Delvalle's cyst. Very small suprapatellar joint effusion. No underlying bone destruction. Marrow cavity is normal. IMPRESSION: 1. Benign-appearing lipoma centered within the left rectus femoris muscle measuring 7.0 x 4.0 cm. No enhancing nodularity and no adjacent inflammatory process. 2. No adenopathy.
[2022-12-25 09:44] LABS: Blood Urea Nitrogen 15 mg/dL (8-23); Glomerular Filtration Rate 84.2 mL/min (90-130)
[2022-12-25] MEDS: iohexol 350 mg/mL 500 mL Btl (per mL) IV (10:18)
== END 2022-12-25 08:58 | disposition home or self-care (01) ==
LOC: RAD 08:58
PROVIDERS: Radiology Neuroradiology; PCP Internal Medicine; Visit Provider Internal Medicine
DX: D17.9 Benign lipomatous neoplasm, unspecified (principal); R22.42 Localized swelling, mass and lump, left lower limb
CPT/HCPCS: 73701; 82565; 84520; Q9967

== ENCOUNTER → 2023-01-27 12:39 | Outpatient (BNVA) | payer MEDICARE, MEDICAID, SELFPAY | PROVIDERS: PCP Internal Medicine; Visit Provider Internal Medicine Rheumatology | DX: M05.79 Rheumatoid arthritis with rheumatoid factor of multiple sites without organ or systems involvement (principal); Z79.899 Other long term (current) drug therapy; M47.816 Spondylosis without myelopathy or radiculopathy, lumbar region; M19.90 Unspecified osteoarthritis, unspecified site | CPT/HCPCS: 99214 ==

== ENCOUNTER → 2023-03-03 08:17 | Outpatient (BNVA) | payer MEDICARE, MEDICAID, SELFPAY | PROVIDERS: PCP Internal Medicine; Visit Provider Otolaryngology | DX: E04.2 Nontoxic multinodular goiter (principal) | CPT/HCPCS: 99213 ==

== ENCOUNTER → 2023-05-21 10:16 | Outpatient (BNVA) | payer MEDICARE, MEDICAID, SELFPAY | PROVIDERS: PCP Internal Medicine; Visit Provider Internal Medicine Rheumatology | DX: M05.79 Rheumatoid arthritis with rheumatoid factor of multiple sites without organ or systems involvement (principal); Z79.899 Other long term (current) drug therapy; M47.816 Spondylosis without myelopathy or radiculopathy, lumbar region; M19.90 Unspecified osteoarthritis, unspecified site | CPT/HCPCS: 99214 ==

== ENCOUNTER 2023-11-03 11:13 | Outpatient (CLI) | payer MEDICARE, MEDICAID, SELFPAY ==
[2023-11-03 11:53] LABS: Basophils % 0.3 %; Eosinophils % 0.1 %; Hematocrit 39.7 % (36-47); Lymphocytes # 1.4 10^3/uL (0.8-4.8); Lymphocytes % 19.9 %; Mean Corpuscular HGB Conc 32.7 g/dL (30-55); Mean Corpuscular Volume 97.8 fl (85-98); Mean Platelet Volume 11.6 fL (7.4-10.4); Monocytes # 0.4 10^3/uL (0.2-0.9); Monocytes % 6.1 %; Neutrophils # 5.32 10^3/uL (1.8-7.7); Neutrophils % 73.3 %; Nucleated Red Blood Cells % 0 %; Platelet Count 261 10^3/cmm (157-399); Red Blood Count 4.06 10^6/uL (3.85-5.65); Red Cell Distribution Width 12.5 % (12.1-15.1); White Blood Count 7.25 10^3/uL (3.29-11.43)
[2023-11-03 12:08] LABS: Alanine Aminotransferase 19 U/L (0-33); Albumin Level 4.2 g/dL (3.5-5.2); Alkaline Phosphatase 90 U/L (35-105); Aspartate Amino Transferase 24 U/L (0-32); Globulin 2.2 g/dL (1.3-4.6); Glomerular Filtration Rate 100.6 mL/min (90-130); Total Bilirubin 0.2 mg/dL (0.15-1.2); Total Protein 6.4 g/dL (6.6-8.7)
== END 2023-11-03 11:14 | disposition home or self-care (01) ==
LOC: LAB 11:14
PROVIDERS: PCP Internal Medicine; Visit Provider Internal Medicine Rheumatology
DX: M05.79 Rheumatoid arthritis with rheumatoid factor of multiple sites without organ or systems involvement (principal); Z79.899 Other long term (current) drug therapy
CPT/HCPCS: 36415; 80076; 82565; 85025; 86140

== ENCOUNTER → 2023-12-17 10:03 | Outpatient (BNVA) | payer MEDICARE, SELFPAY | PROVIDERS: PCP Internal Medicine; Visit Provider Internal Medicine Rheumatology | DX: M05.79 Rheumatoid arthritis with rheumatoid factor of multiple sites without organ or systems involvement (principal); M47.816 Spondylosis without myelopathy or radiculopathy, lumbar region; M17.0 Bilateral primary osteoarthritis of knee; Z79.899 Other long term (current) drug therapy; M25.552 Pain in left hip; Z11.1 Encounter for screening for respiratory tuberculosis; Z11.59 Encounter for screening for other viral diseases | CPT/HCPCS: 99215 ==

== ENCOUNTER 2024-01-25 11:54 | Emergency (ER) | payer MEDICARE, SELFPAY ==
[2024-01-25 12:03] VITALS: BP 109/66; PULSE 90; TEMP 36.7; O2SAT 97; BMI 36.0
--- NOTE | 2024-01-25 12:09 | ECG_ITS ---
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 Measurements Intervals Dresher Rate: 91 P: 28 MN: 152 QRS: 15 QRSD: 103 T: 31 QT: 381 QTc: 469 Interpretive Statements SINUS RHYTHM MODERATE VOLTAGE CRITERIA FOR LVH, CONSIDER NORMAL VARIANT [MEETS CRITERIA IN ONE OF: R(aVL), S(V1), R(V5), R(V5/V6)+S(V1)] NONSPECIFIC T-WAVE ABNORMALITY Compared to ECG 11/22/2014 08:26:29 T-wave abnormality now present Electronically Signed On 01-25-2024 16:05:16 CDT by Mathew Matamoros M.D. [email or web address]
--- NOTE | 2024-01-25 12:10 | XRR_ITS ---
PROCEDURE INFORMATION: Exam: XR Chest Exam date and time: 01/25/2024 12:24 PM Age: 63 years old Clinical indication: Shortness of breath; Additional info: Chest pain TECHNIQUE: Imaging protocol: Radiologic exam of the chest. Views: 1 view. COMPARISON: CR XR chest 2V* [id number] 12/31/2020 11:25 AM FINDINGS: Lungs: Unremarkable. No consolidation. Pleural spaces: Unremarkable. No pleural effusion. No pneumothorax. Heart/Mediastinum: Unremarkable. No cardiomegaly. Bones/joints: Unremarkable. XR/XR chest 1V portable [id number] IMPRESSION: No acute findings.
[2024-01-25 14:02] LABS: Basophils # 0.1 10^3/uL (0.0-0.1); Basophils % 0.9 %; Eosinophils # 0.1 10^3/uL (0.0-0.8); Eosinophils % 1.9 %; Hematocrit 43.5 % (36-47); Lymphocytes # 2.6 10^3/uL (0.8-4.8); Lymphocytes % 41.3 %; Mean Corpuscular HGB Conc 32.4 g/dL (30-55); Mean Corpuscular Hemoglobin 31.8 pg (27-33); Monocytes # 0.8 10^3/uL (0.2-0.9); Monocytes % 12.4 %; Neutrophils # 2.75 10^3/uL (1.8-7.7); Nucleated Red Blood Cells % 0 %; Platelet Count 227 10^3/cmm (157-399); Red Blood Count 4.44 10^6/uL (3.85-5.65); Red Cell Distribution Width 14.6 % (12.1-15.1); White Blood Count 6.39 10^3/uL (3.29-11.43)
[2024-01-25 14:21] LABS: Alanine Aminotransferase 29 U/L (0-33); Albumin Level 4.1 g/dL (3.5-5.2); Alkaline Phosphatase 103 U/L (35-105); Anion Gap 14.5 (5-19); Aspartate Amino Transferase 41 U/L (0-32); Blood Urea Nitrogen 16 mg/dL (8-23); Calcium 9.4 mg/dL (8.5-10.5); Carbon Dioxide 25 mmol/L (22-29); Chloride 102 mmol/L (98-107); Creatinine Clr Calc Pharmacy 87.0922; Globulin 2.4 g/dL (1.3-4.6); Glomerular Filtration Rate 100.3 mL/min (90-130); Glucose 113 mg/dL (65-115); Lipase 33 U/L (13-60); Osmolality Calculated 288 mOsm/kg (285-295); Potassium 3.5 mmol/L (3.5-5.1); Sodium 138 mmol/L (136-145); Total Bilirubin 0.2 mg/dL (0.15-1.2); Total Protein 6.5 g/dL (6.6-8.7)
--- NOTE | 2024-01-25 15:28 | CTR_ITS ---
PROCEDURE INFORMATION: Exam: CT Abdomen And Pelvis With Contrast Exam date and time: 01/25/2024 5:07 PM Age: 63 years old Clinical indication: Abdominal pain TECHNIQUE: Imaging protocol: Computed tomography of the abdomen and pelvis with contrast. Radiation optimization: All CT scans at this facility use at least one of these dose optimization techniques: automated exposure control; mA and/or kV adjustment per patient size (includes targeted exams where dose is matched to clinical indication); or iterative reconstruction. Contrast material: OMNI 350; Contrast volume: 100 ml; Contrast route: INTRAVENOUS (IV); COMPARISON: CR XR pelvis 1-2V* [id number] 07/10/2021 9:50 AM RADIATION DOSE METRICS: Total DLP (mGy-cm): 1000 FINDINGS: Liver: Findings consistent with fatty infiltration of the liver are identified. Gallbladder and biliary ducts: Normal. No calcified stones. No ductal dilation. Pancreas: Normal. No ductal dilation. Spleen: Normal. No splenomegaly. Adrenal glands: Normal. No mass. Kidneys and ureters: Normal. No hydronephrosis. Stomach and bowel: Colonic diverticula are present although there are no CT findings to suggest diverticulitis. No bowel obstruction or wall thickening. Appendix: The appendix is not definitely seen, but there are no secondary findings to suggest appendicitis. Intraperitoneal space: Unremarkable. No free air. No significant fluid collection. Vasculature: Unremarkable. No abdominal aortic aneurysm. Lymph nodes: Unremarkable. No enlarged lymph nodes. Urinary bladder: Unremarkable as visualized. Reproductive: Unremarkable as visualized. Bones/joints: Unremarkable. No acute fracture. Soft tissues: Unremarkable. CT/CT abdomen pelvis w con* [id number] IMPRESSION: There are no acute concerning abnormalities.
--- NOTE | 2024-01-25 16:25 | W.ED.ABDPA2 ---
HPI - Abdominal Pain General: Chief Complaint: Abdominal Pain Stated Complaint: lower back and abd pain/sob Time Seen by Provider: 01/25/24 15:24 History of Present Illness: 63-year-old female with a history of hypertension, GERD, fibromyalgia and depression who presents emergency room with left abdominal pain. This is been going on for couple months now. Pain has become progressively worse now. Says breathing and can make it worse at times. No chest pain. Pain is in her left lower abdomen and her left flank. No fevers. No nausea or vomiting. She says her doctor treated her for possible urinary tract infection at some point. Related Data Home Medications Medication Instructions Recorded Confirmed diltiazem HCl 180 mg capsule,24 180 mg PO DAILY 07/31/20 12/17/23 hr,extended release furosemide 20 mg tablet 20 mg PO DAILY PRN Edema 07/31/20 12/17/23 metoprolol tartrate 50 mg tablet 50 mg PO DAILY 07/31/20 12/17/23 ibuprofen 800 mg tablet 800 mg PO TID PRN PAIN 08/08/21 12/17/23 diclofenac sodium 1 % topical gel 4 g topical QID 07/09/22 12/17/23 Previous Rx's Medication Instructions Recorded capsaicin 0.075 % topical cream 1 applic topical TID #57 grams 07/17/21 albuterol sulfate 2.5 mg/3 mL 2.5 mg (3 mL) inhalation Q4H PRN 08/13/21 (0.083 %) solution for nebulization shortness of breath or wheezing #90 mL cetirizine 10 mg tablet 10 mg PO DAILY PRN Allergy 11/05/21 Symptoms #90 tabs clonazepam 1 mg tablet 1 mg PO BID #60 tabs 01/07/22 fluoxetine 60 mg tablet 60 mg PO QAM #90 tabs 01/07/22 omeprazole 20 mg capsule,delayed 20 mg PO DAILY #90 caps 05/21/23 release tofacitinib 5 mg tablet (Xeljanz) 5 mg PO BID #60 tabs 08/31/23 nystatin 100,000 unit/mL oral See Rx Instructions .Route 12/04/23 suspension .COMPLEX #140 mL hydrocodone 5 mg-acetaminophen 325 1 tab PO Q6H PRN severe pain 12/17/23 mg tablet (scale score 7-10) 30 days #90 tabs levofloxacin 750 mg tablet 750 mg PO DAILY 7 days #7 tabs 12/17/23 prednisone 5 mg tablet 5 mg PO DAILY #90 tabs 12/17/23 hydroxychloroquine 200 mg tablet 200 mg PO BID #180 tabs 12/21/23 prednisone 20 mg tablet See Rx Instructions .Route 01/12/24 .COMPLEX #30 tabs hydrocodone 5 mg-acetaminophen 325 1 tab PO Q6H PRN pain #20 tabs 01/25/24 mg tablet polyethylene glycol 3350 17 17 g PO DAILY #510 grams 01/25/24 gram/dose oral powder (Miralax) Allergies Allergy/AdvReac Type Severity Reaction Status Date / Time meloxicam Allergy Severe vomiting Verified 01/25/24 12:09 blood methotrexate Allergy Unknown infections Verified 01/25/24 12:09 aripiprazole Allergy Unknown Verified 01/25/24 12:09 diclofenac [From Voltaren] Allergy Unknown Verified 01/25/24 12:09 Sulfa (Sulfonamide Allergy Unknown Verified 01/25/24 12:09 Antibiotics) Review of Systems Narrative: Constitutional symptoms: Negative except as documented in HPI. Skin symptoms: Negative except as documented in HPI. Eye symptoms: Negative except as documented in HPI. ENMT symptoms: Negative except as documented in HPI. Respiratory symptoms: Negative except as documented in HPI. Cardiovascular symptoms: Negative except as documented in HPI. Gastrointestinal symptoms: Negative except as documented in HPI. Genitourinary symptoms: Negative except as documented in HPI. Musculoskeletal symptoms: Negative except as documented in HPI. Neurologic symptoms: Negative except as documented in HPI. Psychiatric symptoms: Negative except as documented in HPI. Endocrine symptoms: Negative except as documented in HPI. 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 Immunization counseling High risk medication use Inflammatory arthritis Hypertension GERD (gastroesophageal reflux disease) Fibromyalgia Osteoarthritis Depression IBS (irritable bowel syndrome) Surgical History History of appendectomy Family History Other Cancer Diabetes Denies family history of CAD (coronary artery disease) Dementia Psychiatric illness Chronic kidney disease (CKD) Lung disease Stroke Social History (Updated 12/17/23 @ 10:22 by Ashley Gay LPN) Smoking and tobacco/nicotine status: current every day tobacco/nicotine user cigarettes Packs smoked per day: 0.5 Alcohol intake: never Substance/Drug Use: never Lives independently: Yes Household members: spouse and children Marital status: Physical Exam Narrative: EXAM NARRATIVE: General: Alert, no acute distress. Skin: Warm, dry. Head: Normocephalic, atraumatic. Neck: Supple, trachea midline. Eye: Extraocular movements are intact. Ears, nose, mouth and throat: mucosa moist. Cardiovascular: Regular, Normal peripheral perfusion. Respiratory: Lungs are clear to auscultation, respirations are non-labored, breath sounds are equal, Symmetrical chest wall expansion. Gastrointestinal: Soft, Nontender, Non distended Musculoskeletal: Normal ROM, no deformity. Neurological: Alert and oriented, No focal neurological deficit observed. Psychiatric: Cooperative, appropriate mood & affect. Course Vital Signs: Vital signs: Vital Signs Temperature 98.0 F 01/25/24 12:03 Pulse Rate 80 01/25/24 19:18 Respiratory Rate 18 01/25/24 19:18 Blood Pressure 110/70 01/25/24 19:18 Pulse Oximetry 95 01/25/24 19:18 Oxygen Delivery Me thod Room Air 01/25/24 12:03 MDM - Abdominal Pain Medical Decision Making Medical decision making: Differential diagnosis including but not limited to and based on the above HPI, review of systems and physical exam: Ureterolithiasis. Urinary tract infection. Appendicitis. Cholecystis. Musculoskeletal / back pain. Pyelonephritis Orders placed to evaluate differential diagnosis based on the above differential, HPI and physical exam Lab Review: Laboratory results were reviewed and interpreted by myself the emergency room physician. Lab work is fairly unremarkable thus far. No leukocytosis. No anemia. No renal failure. Urinalysis is pending at shift change. Acute abdominal series: chest x-ray: No acute process. No obvious infiltrates. No pneumothorax. No cardiomegaly. This was reviewed and interpreted by myself the emergency room physician Abdomen x-ray: Nonspecific bowel gas pattern. No evidence of free air or obstruction. This was reviewed and interpreted by myself the emergency room physician. Patient care transitioned to Dr. Malin at shift change. Urinalysis and a CT of the abdomen pelvis are pending. CT abdomen pelvis with contrast: There are no acute findings. This was reviewed and interpreted by myself the emergency room physician. I also reviewed the radiology report. Assessment and plan: Abdominal pain ?No clear source for her abdominal pain. CT and lab work are normal. This pain has been going on for couple of months. We discussed following with her primary. Will treat her pain for now. [place] here in the emergency room and some for home. - Discharged home - Discussed findings and plan with patient. Answered any questions. - All laboratory values were reviewed and interpreted personally by myself, the ER physician - All imaging was reviewed and interpreted personally by myself, the ER physician. - Evaluation and treatment of this problem were appropriate in the emergency setting Lab Data 01/25/24 13:56 01/25/24 13:56 Labs/Radiology: Radiology Impressions Chest X-Ray 01/25/24 12:10 IMPRESSION: No acute findings. Abdomen/Pelvis CT 01/25/24 15:28 IMPRESSION: There are no acute concerning abnormalities. Laboratory Results WBC 6.39 10^3/uL (3.29-11.43) 01/25/24 13:56 RBC 4.44 10^6/uL (3.85-5.65) 01/25/24 13:56 Hgb 14.10 g/dL (11.27-16.99) 01/25/24 13:56 Hct 43.5 % (36-47) 01/25/24 13:56 MCV 98.0 fl (85-98) 01/25/24 13:56 MCH 31.8 pg (27-33) 01/25/24 13:56 MCHC 32.4 g/dL (30-55) 01/25/24 13:56 RDW 14.6 % (12.1-15.1) 01/25/24 13:56 Plt Count 227 10^3/cmm (157-399) 01/25/24 13:56 MPV 11.0 fL (7.4-10.4) H 01/25/24 13:56 Neut % (Auto) 43.0 % 01/25/24 13:56 Lymph % (Auto) 41.3 % 01/25/24 13:56 [place] % (Auto) 12.4 % 01/25/24 13:56 Eos % (Auto) 1.9 % 01/25/24 13:56 Baso % (Auto) 0.9 % 01/25/24 13:56 Neut # (Auto) 2.75 10^3/uL (1.8-7.7) 01/25/24 13:56 Lymph # (Auto) 2.6 10^3/uL (0.8-4.8) 01/25/24 13:56 [place] # (Auto) 0.8 10^3/uL (0.2-0.9) 01/25/24 13:56 Eos # (Auto) 0.1 10^3/uL (0.0-0.8) 01/25/24 13:56 Baso # (Auto) 0.1 10^3/uL (0.0-0.1) 01/25/24 13:56 Nucleated RBC % (auto) 0 % 01/25/24 13:56 Nucleated RBCs # 0.0 /100WBC 01/25/24 13:56 Sodium 138 mmol/L (136-145) 01/25/24 13:56 Potassium 3.5 mmol/L (3.5-5.1) 01/25/24 13:56 Chloride 102 mmol/L (98-107) 01/25/24 13:56 Carbon Dioxide 25 mmol/L (22-29) 01/25/24 13:56 Anion Gap 14.5 (5-19) 01/25/24 13:56 BUN 16 mg/dL (8-23) 01/25/24 13:56 Creatinine 0.6 mg/dL (0.5-0.9) 01/25/24 13:56 GFR Calculation 100.3 mL/min (90-130) 01/25/24 13:56 Glucose 113 mg/dL (65-115) 01/25/24 13:56 Calculated Osmolality 288 mOsm/kg (285-295) 01/25/24 13:56 Calcium 9.4 mg/dL (8.5-10.5) 01/25/24 13:56 Total Bilirubin 0.2 mg/dL (0.15-1.2) 01/25/24 13:56 AST 41 U/L (0-32) H 01/25/24 13:56 ALT 29 U/L (0-33) 01/25/24 13:56 Alkaline Phosphatase 103 U/L (35-105) 01/25/24 13:56 Total Protein 6.5 g/dL (6.6-8.7) L 01/25/24 13:56 Albumin 4.1 g/dL (3.5-5.2) 01/25/24 13:56 Globulin 2.4 g/dL (1.3-4.6) 01/25/24 13:56 Lipase 33 U/L (13-60) 01/25/24 13:56 Urine Color Yellow (Yellow) 01/25/24 17:00 Urine Appearance Clear (CLEAR) 01/25/24 17:00 Urine pH 5 (5-7) 01/25/24 17:00 Ur Specific [place] 1.025 (1.005-1.030) 01/25/24 17:00 Urine Protein Neg (Negative) 01/25/24 17:00 Urine Glucose (UA) Norm (Normal) 01/25/24 17:00 Urine Ketones 1+ (Negative) H 01/25/24 17:00 Urine Blood Neg (Negative) 01/25/24 17:00 Urine Nitrate Negative (Negative) 01/25/24 17:00 Urine Bilirubin Neg (Negative) 01/25/24 17:00 Urine Urobilinogen Norm mg/dL (Negative) 01/25/24 17:00 Ur Leukocyte Esterase Negative (Negative) 01/25/24 17:00 Amorphous Sediment Not Reportable 01/25/24 17:00 All radiology interpretation(s) finalized by discharge Discharge Plan Discharge Patient Disposition: Home Clinical Impression: Abdominal pain Condition: Stable Prescriptions: New hydrocodone-acetaminophen 5-325 mg tablet 1 tab PO Q6H PRN (Reason: pain) Qty: 20 0RF Miralax 17 gram/dose powder 17 g PO DAILY Qty: 510 0RF Rx Instructions: Take 1 scoop daily while taking pain medications. No Action capsaicin 0.075 % cream 1 applic topical TID Qty: 57 0RF Rx Instructions: do not wash area for at least 30 min after application diltiazem HCl 180 mg capsule,extended release 24 hr 180 mg PO DAILY furosemide 20 mg tablet 20 mg PO DAILY PRN (Reason: Edema) metoprolol tartrate 50 mg tablet 50 mg PO DAILY diclofenac sodium 1 % gel 4 g topical QID Rx Instructions: apply to single knee, ankle, foot; for foot includes sole/toes/top of foot ibuprofen 800 mg tablet 800 mg PO TID PRN (Reason: PAIN) albuterol sulfate 2.5 mg /3 mL (0.083 %) solution for nebulization 2.5 mg inhalation Q4H PRN (Reason: shortness of breath or wheezing) Qty: 90 0RF clonazepam 1 mg tablet 1 mg PO BID Qty: 60 5RF fluoxetine 60 mg tablet 60 mg PO QAM Qty: 90 3RF omeprazole 20 mg capsule,delayed release(DR/EC) 20 mg PO DAILY Qty: 90 1RF methylprednisolone acetate [Depo-Medrol] 40 mg/mL suspension 40 mg intra-articular ONCE Qty: 1.5 0RF lidocaine (PF) 10 mg/mL (1 %) solution 10 mg intra-articular ONCE Qty: 8 0RF levofloxacin 750 mg tablet 750 mg PO DAILY 7 Days Qty: 7 0RF prednisone 5 mg tablet 5 mg PO DAILY Qty: 90 1RF cetirizine 10 mg tablet 10 mg PO DAILY PRN (Reason: Allergy Symptoms) Qty: 90 3RF Xeljanz 5 mg tablet 5 mg PO BID Qty: 60 1RF Hold Instructions: Doctor's Order nystatin 100,000 unit/mL suspension See Rx Instructions .ROUTE .COMPLEX Qty: 140 0RF Dose Instruction: SWISH & SWALLOW 5 ML BY MOUTH 4 TIMES DAILY FOR 7 DAYS Rx Instructions: SWISH & SWALLOW 5 ML BY MOUTH 4 TIMES DAILY FOR 7 DAYS hydrocodone-acetaminophen 5-325 mg tablet 1 tab PO Q6H PRN (Reason: severe pain (scale score 7-10)) 30 Days Qty: 90 0RF hydroxychloroquine 200 mg tablet 200 mg PO BID Qty: 180 1RF prednisone 20 mg tablet See Rx Instructions .ROUTE .COMPLEX Qty: 30 1RF Dose Instruction: take 1/2 to 1 tablet BY MOUTH EVERY DAY UP TO SEVEN DAYS NEEDED FOR joint pain wilfredo Rx Instructions: take 1/2 to 1 tablet BY MOUTH EVERY DAY UP TO SEVEN DAYS NEEDED FOR joint pain wilfredo Discharge Orders: Discharge ED (Routine); Ordered 01/25/24 Ordered By: Lina Perez Referrals: Pk Rojas MD [Primary Care Provider] - Discharge Diet: Usual diet Patient Instructions: Abdominal Pain (ED), Opioid Safety, Pain Management Activity Restrictions/Additional Instructions: Thank you for choosing [facility] for your healthcare needs today. Please realize this is an emergency room and that we are providing you with a medical screening exam and this may not be complete and all inclusive of all the testing and or work up that you may need to determine your ailment or severity of your illness. You have been screened and evaluated and felt safe for discharge. Health conditions do change or evolve sometimes and as such it is important that you follow up with your Primary Doctor to be re checked, 3-5 days is a general good time frame for follow up. You are always welcome to return to the ED for re assessment if your symptoms are worsening or you have new concerns Coding Level of Care Code ED Nerve Specialist for Viridiana Zelaya
[2024-01-25 17:10] LABS: Add Urine Microscopic? NO
[2024-01-25] MEDS: iohexol 350 mg/mL 500 mL Btl (per mL) IV (17:10)
[2024-01-25 17:26] LABS: Bilirubin Urine Neg (Negative); Blood Urine Neg (Negative); Glucose Urine UA Norm (Normal); Ketones Urine 1+ (Negative); Leukocyte Esterase Urine Negative (Negative); Nitrate Urine Negative (Negative); Protein Urine Neg (Negative); Specific Gravity, Urine 1.025 (1.005-1.030); Urine Appearance Clear (CLEAR); Urine Color Yellow (Yellow); Urobilinogen Urine Norm (Negative); pH Urine 5 (5-7)
[2024-01-25 17:27] LABS: Charge for UA Resulting for Rev
[2024-01-25] MEDS: HYDROcodone-acetaminophen 10-325 mg Tablet 1 TAB PO (18:39)
[2024-01-25 19:18] VITALS: BP 110/70; PULSE 80; RESP 18; O2SAT 95
[2024-01-26 05:13] LABS: HIV 1 & 2 Antibody Non-Reactive (Non-Reactiv); HIV 1 & 2 Antigen Non-Reactive (Non-Reactiv)
[2024-01-26 05:34] LABS: Hepatitis B Surface AB < 3.5 (11.5-1000); Hepatitis B Surface Antigen Non-Reactive (Nonreactive); Hepatitis C Virus Antibody Non-Reactive (Nonreactive)
== END 2024-01-25 19:19 | disposition home or self-care (01) ==
PROVIDERS: Family Medicine; Physician Assistant; Emergency Provider Emergency Medicine; PCP Internal Medicine
DX: R10.9 Unspecified abdominal pain (principal); I10 Essential (primary) hypertension; F17.210 Nicotine dependence, cigarettes, uncomplicated
CPT/HCPCS: 36415; 71045; 74177; 80053; 81003; 83690; 85025; 86706; 86803; 87340; 87806; 93005; 99285

== ENCOUNTER 2024-04-24 20:54 | Emergency (ER) | payer MEDICARE, MEDICAID, SELFPAY ==
[2024-04-24 21:21] VITALS: BP 120/71; PULSE 80; RESP 18; TEMP 36.6; O2SAT 91
--- NOTE | 2024-04-24 22:25 | XRR_ITS ---
PROCEDURE INFORMATION: Exam: XR Right Forearm Exam date and time: 04/25/2024 1:18 AM Age: 63 years old Clinical indication: Injury or trauma; Blunt trauma (contusions or hematomas); Arm, lower; Right; Patient HX: Patient sustained a fall at home. C/O pain to entire RT extremity with worst being at proximal humerus and distal forearm. ; Additional info: Fall wrist pain TECHNIQUE: Imaging protocol: Radiologic exam of the right forearm. Views: 2 views. COMPARISON: No relevant prior studies available. FINDINGS: Bones/joints: Normal. Soft tissues: Normal. XR/XR forearm RT 2V [id number] IMPRESSION: No acute findings.
--- NOTE | 2024-04-24 22:25 | XRR_ITS ---
PROCEDURE INFORMATION: Exam: XR Right Humerus Exam date and time: 04/25/2024 1:18 AM Age: 63 years old Clinical indication: Injury or trauma; Blunt trauma (contusions or hematomas); Arm, upper; Right; Patient HX: Patient sustained a fall at home. C/O pain to entire RT extremity with worst being at proximal humerus and distal forearm. ; Additional info: Fall arm pain TECHNIQUE: Imaging protocol: Radiologic exam of the right humerus. Views: 2 or more views. COMPARISON: No relevant prior studies available. FINDINGS: Bones/joints: Acute fracture in the right humeral head at the level of the greater tuberosity. No dislocation or destructive change. Soft tissues: Normal. XR/[place] [id number] IMPRESSION: Acute fracture in the right humeral head
--- NOTE | 2024-04-25 01:48 | XRR_ITS ---
PROCEDURE INFORMATION: Exam: XR Right Wrist Exam date and time: 04/25/2024 1:52 AM Age: 63 years old Clinical indication: Injury or trauma; Blunt trauma (contusions or hematomas); Right; Patient HX: Patient sustained a fall at home. C/O RT wrist pain with worst to region of scaphoid. ; Additional info: R wrist pain after fall TECHNIQUE: Imaging protocol: Radiologic exam of the right wrist. Views: 3 or more views. COMPARISON: CR (UP EX, ) 04/25/2024 1:18 AM FINDINGS: Bones/joints: No acute fracture or dislocation. Degenerative joint space narrowing along the radial side of the wrist in the intercarpal and carpometacarpal joints. Soft tissues: Normal. XR/XR wrist RT w scaphoid [id number] IMPRESSION: No acute findings.
[2024-04-25 01:50] VITALS: RESP 19
[2024-04-25] MEDS: ondansetron 2 mg/ML SDV 2 mL 4 MG IVP (01:50)
[2024-04-25] MEDS: HYDROmorphone 1 mg/mL INJ 1 mL IVP (01:50)
--- NOTE | 2024-04-25 02:24 | ED_ITS ---
HPI - Extremity Problem General: Chief complaint: Extremity Injury, Upper Stated complaint: fell, right arm injury and shoulder, pain Time Seen by Provider: 04/25/24 01:21 History of Present Illness: 63-year-old female who tripped in her ho me, falling against the wall and floor. She complains of severe right shoulder pain and arm pain. She also complains of right wrist pain. She did not hit her head or get knocked out. She is not anticoagulated. Related Data Home Medications Medication Instructions Recorded Confirmed diltiazem HCl 180 mg capsule,24 180 mg PO DAILY 07/31/20 04/18/24 hr,extended release furosemide 20 mg tablet 20 mg PO DAILY PRN Edema 07/31/20 04/18/24 metoprolol tartrate 50 mg tablet 50 mg PO DAILY 07/31/20 04/18/24 ibuprofen 800 mg tablet 800 mg PO TID PRN PAIN 08/08/21 04/18/24 diclofenac sodium 1 % topical gel 4 g topical QID 07/09/22 04/18/24 tolterodine 4 mg capsule,extended 4 mg PO DAILY 04/18/24 04/18/24 release 24 hr Previous Rx's Medication Instructions Recorded capsaicin 0.075 % topical cream 1 applic topical TID #57 grams 07/17/21 albuterol sulfate 2.5 mg/3 mL 2.5 mg (3 mL) inhalation Q4H PRN 08/13/21 (0.083 %) solution for nebulization shortness of breath or wheezing #90 mL cetirizine 10 mg tablet 10 mg PO DAILY PRN Allergy 11/05/21 Symptoms #90 tabs clonazepam 1 mg tablet 1 mg PO BID #60 tabs 01/07/22 fluoxetine 60 mg tablet 60 mg PO QAM #90 tabs 01/07/22 nystatin 100,000 unit/mL oral See Rx Instructions .Route 12/04/23 suspension .COMPLEX #140 mL levofloxacin 750 mg tablet 750 mg PO DAILY 7 days #7 tabs 12/17/23 prednisone 5 mg tablet 5 mg PO DAILY #90 tabs 12/17/23 hydroxychloroquine 200 mg tablet 200 mg PO BID #180 tabs 12/21/23 polyethylene glycol 3350 17 17 g PO DAILY #510 grams 01/25/24 gram/dose oral powder (Miralax) prednisone 20 mg tablet See Rx Instructions .Route 03/14/24 .COMPLEX #30 tabs omeprazole 20 mg capsule,delayed 20 mg PO DAILY #90 caps 03/24/24 release hydrocodone 5 mg-acetaminophen 325 1 tab PO Q6H PRN severe pain 04/05/24 mg tablet (scale score 7-10) 30 days #90 tabs tofacitinib 5 mg tablet (Xeljanz) 5 mg PO BID #60 tabs 04/14/24 estradiol 0.01% (0.1 mg/gram) 1 appful vaginal DAILY #42.5 grams 04/18/24 vaginal cream (Estrace) estradiol 1 mg tablet (Estrace) 1 mg PO DAILY #30 tabs 04/18/24 medroxyprogesterone 2.5 mg tablet 2.5 mg PO DAILY #30 tabs 04/18/24 (Provera) vibegron 75 mg tablet (Gemtesa) 75 mg PO DAILY #30 tabs 04/18/24 oxycodone-acetaminophen 5 mg-325 1 tab PO Q6H PRN pain #14 tabs 04/25/24 mg tablet (Percocet) Allergies Allergy/AdvReac Type Severity Reaction Status Date / Time meloxicam Allergy Severe vomiting Verified 04/24/24 21:28 blood methotrexate Allergy Unknown infections Verified 04/24/24 21:28 aripiprazole Allergy Unknown Verified 04/24/24 21:28 diclofenac [From Voltaren] Allergy Unknown Verified 04/24/24 21:28 Sulfa (Sulfonamide Allergy Unknown Verified 04/24/24 21:28 Antibiotics) PFS ED PFSH: Medical History (Updated 04/25/24 @ 02:20 by Zev Leonard DO) Greater trochanteric pain syndrome of left lower extremity Bronchitis 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 Immunization counseling High risk medication use Inflammatory arthritis Hypertension GERD (gastroesophageal reflux disease) Fibromyalgia Osteoarthritis Depression IBS (irritable bowel syndrome) Surgical History History of appendectomy Family History Sister Breast cancer Mother Diabetes Father Diabetes Other Cancer Denies family history of Ovarian cancer CAD (coronary artery disease) Dementia Heart disease Psychiatric illness Chronic kidney disease (CKD) Lung disease Hypertension Uterine cancer Thyroid disease Stroke Social History Smoking and tobacco/nicotine status: current every day tobacco/nicotine user (1 PPD) cigarettes Packs smoked per day: 0.5 Alcohol intake: never Substance/Drug Use: never Lives independently: Yes Household members: spouse and children Marital status: Physical Exam Const: COMMON NORMALS: no acute distress GENERAL APPEARANCE: cooperative; not ill appearing and not frail appearing HENMT: COMMON NORMALS: normocephalic, atraumatic and Normal external nose present HEAD & SCALP: normocephalic and atraumatic FACE & SINUS: normal facial exam and face symmetric NOSE: Normal external nose present Eye: COMMON NORMALS: Equal, round and reactive pupils present and EOMs intact bilaterally PUPIL: Yes Equal, round and reactive pupils present Neck/C-Spine: GENERAL: Yes trachea midline Chest: CHEST: Yes Symmetrical chest wall rise Resp: COMMON NORMALS: normal respiratory effort, No retractions and No use of accessory muscles Cardio: COMMON NORMALS: regular rate and regular rhythm RATE: regular rate RHYTHM: regular rhythm Extremity: NARRATIVE EXTREMITY EXAM: Exam the right upper extremity reveals no deformity. There is tenderness over the lateral shoulder, minimal tenderness over the distal arm. No elbow tenderness. There is tenderness diffusely across the wrist and distal forearm. There is no deformity here. Mild swelling. Minimal ecchymosis. Neuro: SÁNCHEZ COMA SCALE: document GCS findings Sánchez coma scale eye opening: Spontaneous Sánchez coma scale verbal response: Orientated [place] coma scale motor response: Obey commands Sánchez coma scale total score: 15 SENSORY EXAM: Yes extremities (intact) Psych: COMMON NORMALS: speech normal SPEECH: Yes normal speech Skin: COMMON NORMALS: no rashes or lesions noted GENERAL SKIN EXAM: no rashes or lesions noted Course Vital Signs: Vital signs: Vital Signs Temperature 97.9 F 04/24/24 21:21 Pulse Rate 83 04/25/24 02:49 Respiratory Rate 15 04/25/24 02:39 Blood Pressure 120/69 04/25/24 02:49 Pulse Oximetry 95 04/25/24 02:49 Oxygen Delivery Me thod Room Air 04/24/24 21:21 MDM - Extremity (Nontraumatic) Medical Decision Making X-rays reveal acute fracture of the right humeral head along the tuberosity. Forearm x-ray is negative. Wrist x-ray is completed as well with navicular view which does not show fracture. She is placed in a shoulder immobilizer. Pain control. Ice. Orthopedic follow-up. Return for worsening symptoms despite treatment. Lab Data Radiology Impressions Forearm X-Ray 04/24/24 22:25 IMPRESSION: No acute findings. Humerus X-Ray 04/24/24 22:25 IMPRESSION: Acute fracture in the right humeral head Wrist X-Ray 04/25/24 01:48 IMPRESSION: No acute findings. All radiology interpretation(s) finalized by discharge Discharge Plan Discharge Patient Disposition: Home Clinical Impression: Sprain and strain of wrist Fracture of humerus Qualifiers: Encounter type: initial encounter Humerus Location: greater tuberosity Fracture type: closed Fracture alignment: nondisplaced Laterality: right Qualified Code(s): S42.254A - Nondisplaced fracture of greater tuberosity of right humerus, initial encounter for closed fracture Condition: Stable Prescriptions: New oxycodone-acetaminophen [Percocet] 5-325 mg tablet 1 tab PO Q6H PRN (Reason: pain) Qty: 14 0RF No Action capsaicin 0.075 % cream 1 applic topical TID Qty: 57 0RF Rx Instructions: do not wash area for at least 30 min after application diltiazem HCl 180 mg capsule,extended release 24 hr 180 mg PO DAILY furosemide 20 mg tablet 20 mg PO DAILY PRN (Reason: Edema) metoprolol tartrate 50 mg tablet 50 mg PO DAILY diclofenac sodium 1 % gel 4 g topical QID Rx Instructions: apply to single knee, ankle, foot; for foot includes sole/toes/top of foot ibuprofen 800 mg tablet 800 mg PO TID PRN (Reason: PAIN) albuterol sulfate 2.5 mg /3 mL (0.083 %) solution for nebulization 2.5 mg inhalation Q4H PRN (Reason: shortness of breath or wheezing) Qty: 90 0RF clonazepam 1 mg tablet 1 mg PO BID Qty: 60 5RF fluoxetine 60 mg tablet 60 mg PO QAM Qty: 90 3RF methylprednisolone acetate [Depo-Medrol] 40 mg/mL suspension 40 mg intra-articular ONCE Qty: 1.5 0RF lidocaine (PF) 10 mg/mL (1 %) solution 10 mg intra-articular ONCE Qty: 8 0RF levofloxacin 750 mg tablet 750 mg PO DAILY 7 Days Qty: 7 0RF prednisone 5 mg tablet 5 mg PO DAILY Qty: 90 1RF tolterodine 4 mg capsule,extended release 24hr 4 mg PO DAILY medroxyprogesterone [Provera] 2.5 mg tablet 2.5 mg PO DAILY Qty: 30 3RF estradiol [Estrace] 1 mg tablet 1 mg PO DAILY Qty: 30 3RF estradiol [Estrace] 0.01 % (0.1 mg/gram) cream 1 appful vaginal DAILY Qty: 42.5 3RF Rx Instructions: for 14 days, then one applicator intravaginally two times per week Gemtesa 75 mg tablet 75 mg PO DAILY Qty: 30 3RF cetirizine 10 mg tablet 10 mg PO DAILY PRN (Reason: Allergy Symptoms) Qty: 90 3RF nystatin 100,000 unit/mL suspension See Rx Instructions .ROUTE .COMPLEX Qty: 140 0RF Dose Instruction: SWISH & SWALLOW 5 ML BY MOUTH 4 TIMES DAILY FOR 7 DAYS Rx Instructions: SWISH & SWALLOW 5 ML BY MOUTH 4 TIMES DAILY FOR 7 DAYS hydroxychloroquine 200 mg tablet 200 mg PO BID Qty: 180 1RF prednisone 20 mg tablet See Rx Instructions .ROUTE .COMPLEX Qty: 30 1RF Dose Instruction: take 1/2 to 1 tablet BY MOUTH EVERY DAY UP TO SEVEN DAYS NEEDED FOR joint pain wilfredo Rx Instructions: take 1/2 to 1 tablet BY MOUTH EVERY DAY UP TO SEVEN DAYS NEEDED FOR joint pain wilfredo omeprazole 20 mg capsule,delayed release(DR/EC) 20 mg PO DAILY Qty: 90 1RF hydrocodone-acetaminophen 5-325 mg tablet 1 tab PO Q6H PRN (Reason: severe pain (scale score 7-10)) 30 Days Qty: 90 0RF Xeljanz 5 mg tablet 5 mg PO BID Qty: 60 1RF Hold Instructions: Doctor's Order Miralax 17 gram/dose powder 17 g PO DAILY Qty: 510 0RF Rx Instructions: Take 1 scoop daily while taking pain medications. Discharge Orders: Discharge ED (Routine); Ordered 04/25/24 Ordered By: Zev Leonard Referrals: Pk Rojas MD [Primary Care Provider] - Jean-Paul Brown DO [Physician] - 1-3 days Patient Instructions: Proximal Humerus Fracture (ED), Opioid Safety, Pain Management Activity Restrictions/Additional Instructions: Stay in shoulder immobilizer. To shower, you may set your arm against your stomach, and use your left arm to shower. Ice, frequently, for the next 48 hours, then as needed following that. Pain medication for significant pain. Return for problems. Call orthopedics at the number listed above later this morning for a follow-up appointment this week. Let them know you were seen here for an arm fracture. Coding Level of Care Code ED Email Marketing Executive for Viridiana Zelaya
[2024-04-25 02:39] VITALS: RESP 15
[2024-04-25] MEDS: oxyCODONE-APAP 5-325 mg Tablet 2 TAB PO (02:39)
[2024-04-25 02:49] VITALS: BP 120/69; PULSE 83; O2SAT 95
== END 2024-04-25 02:52 | disposition home or self-care (01) ==
PROVIDERS: Emergency Provider Emergency Medicine; PCP Internal Medicine
DX: S63.501A Unspecified sprain of right wrist, initial encounter (principal); S42.254A Nondisplaced fracture of greater tuberosity of right humerus, initial encounter for closed fracture; F17.210 Nicotine dependence, cigarettes, uncomplicated; W19.XXXA Unspecified fall, initial encounter
CPT/HCPCS: 29240; 73060; 73090; 73110; 96374; 96375; 99284; J1171; J2405

== ENCOUNTER → 2024-04-27 12:46 | Outpatient (BNVA) | payer MEDICARE, MEDICAID, SELFPAY | PROVIDERS: PCP Internal Medicine; Visit Provider Internal Medicine Rheumatology | DX: M05.79 Rheumatoid arthritis with rheumatoid factor of multiple sites without organ or systems involvement (principal); Z79.899 Other long term (current) drug therapy; M47.816 Spondylosis without myelopathy or radiculopathy, lumbar region; M25.552 Pain in left hip | CPT/HCPCS: 99214 ==

== ENCOUNTER → 2024-04-29 08:37 | Outpatient (BNVA) | payer MEDICARE, MEDICAID, SELFPAY | PROVIDERS: PCP Internal Medicine; Visit Provider Physician Assistant | DX: M25.511 Pain in right shoulder (principal); S42.254A Nondisplaced fracture of greater tuberosity of right humerus, initial encounter for closed fracture; W01.0XXA Fall on same level from slipping, tripping and stumbling without subsequent striking against object, initial encounter | CPT/HCPCS: 23600; 73030; 99203 ==

== ENCOUNTER → 2024-05-13 09:54 | Outpatient (BNVA) | payer MEDICARE, MEDICAID, SELFPAY | PROVIDERS: PCP Internal Medicine; Visit Provider Physician Assistant | DX: S42.254A Nondisplaced fracture of greater tuberosity of right humerus, initial encounter for closed fracture; X58.XXXA Exposure to other specified factors, initial encounter | CPT/HCPCS: 73030; 99213 ==

== ENCOUNTER → 2024-05-27 09:15 | Outpatient (BNVA) | payer MEDICARE, MEDICAID, SELFPAY | PROVIDERS: PCP Internal Medicine; Visit Provider Physician Assistant | DX: S42.254D Nondisplaced fracture of greater tuberosity of right humerus, subsequent encounter for fracture with routine healing; S42.91XD Fracture of right shoulder girdle, part unspecified, subsequent encounter for fracture with routine healing; X58.XXXD Exposure to other specified factors, subsequent encounter; Z46.89 Encounter for fitting and adjustment of other specified devices | CPT/HCPCS: 73030 ==

== ENCOUNTER 2024-05-27 10:03 | Outpatient (CLI) | payer MEDICARE, MEDICAID, SELFPAY | END 2024-05-27 10:04 | disposition home or self-care (01) | LOC: SPT 10:04 | PROVIDERS: PCP Internal Medicine; Visit Provider Physician Assistant | DX: Z46.89 Encounter for fitting and adjustment of other specified devices (principal); S42.254 Nondisplaced fracture of greater tuberosity of right humerus; X58.XXXS Exposure to other specified factors, sequela | CPT/HCPCS: 99213; A4565 ==

== ENCOUNTER → 2024-06-24 10:49 | Outpatient (BNVA) | payer MEDICARE, MEDICAID, SELFPAY | PROVIDERS: PCP Internal Medicine; Visit Provider Physician Assistant | DX: S42.254A Nondisplaced fracture of greater tuberosity of right humerus, initial encounter for closed fracture (principal); X58.XXXA Exposure to other specified factors, initial encounter | CPT/HCPCS: 73030; 99213 ==

== ENCOUNTER 2024-07-22 12:45 | Outpatient (CLI) | payer MEDICARE, MEDICAID, SELFPAY ==
--- NOTE | 2024-07-22 12:48 | XR_ITS ---
WS: [id number] DEXA (DUAL ENERGY X-RAY ABSORPTIOMETRY) Bone mineral density was performed using a [employer] machine. HISTORY: S42.294A Other closed nondisplaced fracture of RT humerus COMPARISON: None available. Lumbar spine BMD (L1-L4): 0.742 g/cm2 T score: -3.6 Z score: -3.2 Total hip BMD: Left: 0.906 g/cm2. T score: -0.8 Z score: -0.4 Right: 0.914 g/cm2. T score: -0.7 Z score: -0.4 10 year probability of a major osteoporotic fracture is 36.8%. XR/XR DEXA axial skeleton* [id number] IMPRESSION: OSTEOPOROSIS based upon the WHO classification for females.
== END 2024-07-22 12:46 | disposition home or self-care (01) ==
LOC: RAD 12:46
PROVIDERS: PCP Internal Medicine; Visit Provider Internal Medicine
DX: M81.0 Age-related osteoporosis without current pathological fracture (principal)
CPT/HCPCS: 77080

== ENCOUNTER → 2024-08-24 13:03 | Outpatient (BNVA) | payer MEDICARE, MEDICAID, SELFPAY | PROVIDERS: PCP Internal Medicine; Visit Provider Internal Medicine Rheumatology | DX: M05.79 Rheumatoid arthritis with rheumatoid factor of multiple sites without organ or systems involvement (principal); Z79.899 Other long term (current) drug therapy; M47.816 Spondylosis without myelopathy or radiculopathy, lumbar region | CPT/HCPCS: 36415; 80076; 82306; 82310; 82565; 85025; 85651; 86140; 99214 ==

== ENCOUNTER 2024-09-16 09:44 | Oncology outpatient (recurring) (ONCR) | payer MEDICARE, MEDICAID, SELFPAY ==
[2024-09-16] MEDS: denosumab 60 mg SDV SUBCUT (10:31)
[2024-09-16 11:46] VITALS: BP 136/76; PULSE 68; RESP 16; TEMP 36.6; O2SAT 98
== END 2024-10-08 23:59 | disposition home or self-care (01) ==
PROVIDERS: PCP Internal Medicine; Visit Provider Internal Medicine Rheumatology
DX: M81.0 Age-related osteoporosis without current pathological fracture (principal); Z79.899 Other long term (current) drug therapy
CPT/HCPCS: 96372; J0897

== ENCOUNTER 2024-09-28 15:55 | Observation (INO) | payer MEDICARE, MEDICAID, SELFPAY ==
[2024-09-28] VITALS (10 sets, daily range): BP systolic 110–169; BP diastolic 71–100; PULSE 65–110; RESP 18–33; TEMP 36.4–37.1; O2SAT 91–97; BMI 39.7
--- NOTE | 2024-09-28 16:20 | ECG_ITS ---
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 Measurements Intervals [place] Rate: 110 P: 31 MS: 134 QRS: 24 QRSD: 81 T: 58 QT: 338 QTc: 458 Interpretive Statements SINUS TACHYCARDIA POSSIBLE LEFT ATRIAL ENLARGEMENT [-0.1mV P-WAVE IN V1/V2] MINIMAL ST DEPRESSION [0.025+ mV ST DEPRESSION] ABNORMAL RHYTHM ECG Compared to ECG 01/25/2024 12:14:20 ST (T wave) deviation now present Sinus rhythm no longer present T-wave abnormality no longer present Electronically Signed On 09-29-2024 18:08:18 CDT by Fili Laguna M.D. [email or web address] [id number]
--- NOTE | 2024-09-28 16:20 | XRR_ITS ---
PROCEDURE INFORMATION: Exam: XR Chest Exam date and time: 09/28/2024 4:24 PM Age: 63 years old Clinical indication: Pain; Angina pectoris; Additional info: Chest pain TECHNIQUE: Imaging protocol: Radiologic exam of the chest. Views: 1 view. COMPARISON: CR XR chest 1V portable [id number] 01/25/2024 12:24 PM FINDINGS: Lungs: Unremarkable. No consolidation. Pleural spaces: Unremarkable. No pleural effusion. No pneumothorax. Heart/Mediastinum: Unremarkable. No cardiomegaly. Bones/joints: Unremarkable. XR/XR chest 1V portable [id number] IMPRESSION: No acute findings.
--- NOTE | 2024-09-28 16:30 | W.ED.SOB ---
HPI - SOB/Dyspnea General: Chief Complaint: Shortness of Breath/Dyspnea Stated Complaint: CP sob Time Seen by Provider: 09/28/24 16:13 History of Present Illness: HPI Narrative: 63-year-old female with a history of atrial fibrillation on diltiazem, hypertension, GERD, fibromyalgia, chronic pain syndrome on hydrocodone, anxiety on clonazepam and obesity who presents to the emergency room with complaints of palpitations, heart pounding and chest tightness. She also has felt dizzy. She says her heart rate was going very fast. Particularly when she get up. She is taken multiple extra doses of her diltiazem which normally helps. Some chest tightness. No shortness of breath. No abdominal pain. No nausea or vomiting. No dysuria. No cough. No fever. Related Data Home Medications ?Medication ?Instructions ?Recorded ?Confirmed diltiazem HCl 180 mg capsule,24 180 mg PO DAILY 07/31/20 06/24/24 hr,extended release furosemide 20 mg tablet 20 mg PO DAILY PRN Edema 07/31/20 06/24/24 metoprolol tartrate 50 mg tablet 50 mg PO DAILY 07/31/20 06/24/24 ibuprofen 800 mg tablet 800 mg PO TID PRN PAIN 08/08/21 06/24/24 tolterodine 4 mg capsule,extended 4 mg PO DAILY 04/18/24 05/17/24 release 24 hr denosumab 60 mg/mL subcutaneous mg SUBCUT 08/24/24 08/24/24 syringe (Prolia) Previous Rx's ?Medication ?Instructions ?Recorded albuterol sulfate 2.5 mg/3 mL 2.5 mg (3 mL) inhalation Q4H PRN 08/13/21 (0.083 %) solution for nebulization shortness of breath or wheezing #90 mL cetirizine 10 mg tablet 10 mg PO DAILY PRN Allergy 11/05/21 Symptoms #90 tabs clonazepam 1 mg tablet 1 mg PO BID #60 tabs 01/07/22 fluoxetine 60 mg tablet 60 mg PO QAM #90 tabs 01/07/22 nystatin 100,000 unit/mL oral See Rx Instructions .Route 12/04/23 suspension .COMPLEX #140 mL estradiol 0.01% (0.1 mg/gram) 1 appful vaginal DAILY #42.5 grams 04/18/24 vaginal cream (Estrace) estradiol 1 mg tablet See Rx Instructions .Route 08/05/24 .COMPLEX #30 tabs medroxyprogesterone 2.5 mg tablet See Rx Instructions .Route 08/05/24 .COMPLEX #30 tabs vibegron 75 mg tablet (Gemtesa) See Rx Instructions .Route 08/05/24 .COMPLEX #30 tabs hydrocodone 5 mg-acetaminophen 325 1 tab PO Q8H PRN severe pain 08/24/24 mg tablet (scale score 7-10) 30 days #90 tabs hydroxychloroquine 200 mg tablet 200 mg PO BID #180 tabs 08/24/24 omeprazole 20 mg capsule,delayed 20 mg PO DAILY #90 caps 08/24/24 release prednisone 5 mg tablet 5 mg PO DAILY #90 tabs 08/24/24 tofacitinib 5 mg tablet (Xeljanz) 5 mg PO BID #180 tabs 08/24/24 prednisone 20 mg tablet See Rx Instructions .Route 09/05/24 .COMPLEX #30 tabs Allergies Allergy/AdvReac Type Severity Reaction Status Date / Time meloxicam Allergy Severe vomiting Verified 06/24/24 11:01 blood methotrexate Allergy Unknown infections Verified 06/24/24 11:01 aripiprazole Allergy Unknown Verified 06/24/24 11:01 diclofenac (From Voltaren) Allergy Unknown Verified 06/24/24 11:01 Sulfa (Sulfonamide Allergy Unknown Verified 06/24/24 11:01 Antibiotics) Review of Systems Narrative: Constitutional symptoms: Negative except as documented in HPI. Skin symptoms: Negative except as documented in HPI. Eye symptoms: Negative except as documented in HPI. ENMT symptoms: Negative except as documented in HPI. Respiratory symptoms: Negative except as documented in HPI. Cardiovascular symptoms: Negative except as documented in HPI. Gastrointestinal symptoms: Negative except as documented in HPI. Genitourinary symptoms: Negative except as documented in HPI. Musculoskeletal symptoms: Negative except as documented in HPI. Neurologic symptoms: Negative except as documented in HPI. Psychiatric symptoms: Negative except as documented in HPI. Endocrine symptoms: Negative except as documented in HPI. . 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 Immunization counseling High risk medication use Inflammatory arthritis Hypertension GERD (gastroesophageal reflux disease) Fibromyalgia Osteoarthritis Depression IBS (irritable bowel syndrome) Surgical History History of appendectomy Family History Sister Breast cancer Mother Diabetes Father Diabetes Other Cancer Denies family history of Ovarian cancer CAD (coronary artery disease) Dementia Heart disease Psychiatric illness Chronic kidney disease (CKD) Lung disease Hypertension Uterine cancer Thyroid disease Stroke Social History (Updated 08/24/24 @ 13:50 by Isabel Rock LPN) Smoking and tobacco/nicotine status: current every day tobacco/nicotine user (pt smokes 1 pack per day) cigarettes Packs smoked per day: 1 Alcohol intake: never Substance/Drug Use: never Additional social history: smokes 1 pack per day Lives independently: Yes Household members: spouse and children Marital status: Physical Exam Narrative: EXAM NARRATIVE: General: Alert, no acute distress. Skin: Warm, dry. Head: Normocephalic, atraumatic. Neck: Supple, trachea midline. Eye: Extraocular movements are intact. Ears, nose, mouth and throat: mucosa moist. Cardiovascular: Tachycardic, irregularly irregular, Normal peripheral perfusion. Respiratory: Lungs are clear to auscultation, respirations are non-labored, breath sounds are equal, Symmetrical chest wall expansion. Gastrointestinal: Soft, Nontender, Non distended Musculoskeletal: Normal ROM, no deformity. Neurological: Alert and oriented, No focal neurological deficit observed. Psychiatric: Cooperative, appropriate mood & affect. Course Vital Signs: Vital signs: Vital Signs Temperature 97.5 F L 09/28/24 16:05 Pulse Rate 96 09/28/24 17:32 Respiratory Rate 18 09/28/24 17:32 Blood Pressure 123/71 09/28/24 17:32 Pulse Oximetry 97 09/28/24 17:32 Oxygen Delivery Me thod Room Air 09/28/24 16:05 MDM - SOB/Dyspnea Medical Decision Making Medical decision making: Differential diagnosis including but not limited to and based on the above HPI, review of systems and physical exam: for patient with palpitations: atrial fibrillation with rapid ventricular response. ventricular tachycardia. sinus tachycardia. PVCs. also concern for underlying issues causing tachycardia. Infection, electrolyte abnormalities and thyroid issues. Orders placed to evaluate differential diagnosis based on the above differential, HPI and physical exam EKG: Time 1603. Rate 110. Atrial fibrillation with rapid ventricular response, No ST-T changes, no ectopy, This was reviewed and interpreted by myself the ER physician at 1608 Chest x-ray: No acute process. No infiltrate. No pneumothorax. This was reviewed and interpreted by myself the emergency room physician. I also reviewed the radiology report. Lab Review: Laboratory results were reviewed and interpreted by myself the emergency room physician. Mild leukocytosis with an elevated lactate of 2.8. She is tachycardic but her blood pressure has been normal. This could be an early sepsis. Urinalysis was posted at 1644. This demonstrated a urinary tract infection. Fluids and antibiotics were ordered at that time. I reviewed the patient's medical record. Reexamination: Patient remained stable. No increased work of breathing. No altered mental status. No focal motor deficits. Patient has been quite tearful and says she feels very very bad. She has remained fairly tachycardic. Consultation: I spoke with Dr. Gutierrez who is on-call for the hospitalist service who agrees to admission. We will admit to the stepdown. Assessment and plan: A-fib with RVR Urinary tract infection Possible sepsis ?IV diltiazem bolus and drip. -2 L normal saline bolus. Fluid volumes based on ideal body weight. -Broad-spectrum antibiotics were administered. -Sepsis quality measures. -Lactic acid with a reflex was ordered. -Blood cultures were ordered. -I discussed the patient with the hospitalist on-call who is admitting the patient. - Discussed findings and plan with patient. Answered any questions. - All laboratory values were reviewed and interpreted personally by myself, the ER physician - All imaging was reviewed and interpreted personally by myself, the ER physician. - Evaluation and treatment of this problem were appropriate in the emergency setting Critical care -I spent a total of >35 minutes of critical care time managing the patient, independent of any other practitioner. -The time involved in the performance of separately reportable procedures was not counted towards critical care time. Lab Data 09/28/24 16:26 09/28/24 16:26 Labs/Radiology: Radiology Impressions Chest X-Ray 09/28/24 16:20 IMPRESSION: No acute findings. Laboratory Results WBC 10.82 10^3/uL (3.29-11.43) 09/28/24 16: RBC 4.62 10^6/uL (3.85-5.65) 09/28/24 16: Hgb 13.90 g/dL (11.27-16.99) 09/28/24 16: Hct 42.3 % (36-47) 09/28/24 16: MCV 91.6 fl (85-98) 09/28/24 16: MCH 30.1 pg (27-33) 09/28/24 16: MCHC 32.9 g/dL (30-55) 09/28/24 16: RDW 14.6 % (12.1-15.1) 09/28/24 16: Plt Count 255 10^3/cmm (157-399) 09/28/24 16: MPV 10.9 fL (7.4-10.4) H 09/28/24 16: Neut % (Auto) 59.3 % 09/28/24 16: Lymph % (Auto) 28.3 % 09/28/24 16: [place] % (Auto) 10.0 % 09/28/24 16: Eos % (Auto) 1.2 % 09/28/24 16: Baso % (Auto) 0.4 % 09/28/24: Neut # (Auto) 6.42 10^3/uL (1.8-7.7) 09/28/24 16: Lymph # (Auto) 3.1 10^3/uL (0.8-4.8) 09/28/24 16: [place] # (Auto) 1.1 10^3/uL (0.2-0.9) H 09/28/24 16: Eos # (Auto) 0.1 10^3/uL (0.0-0.8) 09/28/24 16: Baso # (Auto) 0.0 10^3/uL (0.0-0.1) 09/28/24 16: Nucleated RBC % (auto) 0 % 09/28/24 16: Nucleated RBCs # 0.0 /100WBC 09/28/24 16: Sodium 139 mmol/L (136-145) 09/28/24 16: Potassium 3.8 mmol/L (3.5-5.1) 09/28/24 16:26 Chloride 100 mmol/L (98-107) 09/28/24 16:26 Carbon Dioxide 22 mmol/L (22-29) 09/28/24 16:26 Anion Gap 20.8 (5-19) H 09/28/24 16:26 BUN 15 mg/dL (8-23) 09/28/24 16:26 Creatinine 0.8 mg/dL (0.5-0.9) 09/28/24 16:26 GFR Calculation 72.0 mL/min (90-130) L 09/28/24 16:26 Glucose 144 mg/dL (65-115) H 09/28/24 16:26 Calculated Osmolality 291 mOsm/kg (285-295) 09/28/24 16:26 Lactic Acid 2.8 mmol/L (0.5-2.2) H 09/28/24 16:26 Calcium 9.4 mg/dL (8.5-10.5) 09/28/24 16:26 Magnesium 1.8 mg/dL (1.7-2.3) 09/28/24 16:26 Total Bilirubin 0.2 mg/dL (0.15-1.2) 09/28/24 16: AST 24 U/L (0-32) 09/28/24 16: ALT 20 U/L (0-33) 09/28/24 16:26 Alkaline Phosphatase 88 U/L (35-105) 09/28/24 16:26 Troponin T Baseline 12 ng/L (0-10) H 09/28/24 16:26 C-Reactive Protein 47.1 mg/L (0.0-4.9) H 09/28/24 16:26 NT-Pro-B Natriuret Pep 47 pg/mL (0-125) 09/28/24 16:26 Total Protein 6.1 g/dL (6.6-8.7) L 09/28/24 16:26 Albumin 4.0 g/dL (3.5-5.2) 09/28/24 16:26 Globulin 2.1 g/dL (1.3-4.6) 09/28/24 16:26 TSH 0.66 uIU/mL (0.27-4.20) 09/28/24 16:26 Urine Color Yellow (Yellow) 09/28/24 16:44 Urine Appearance Clear (CLEAR) 09/28/24 16:44 Urine pH 5.0 (5-7) 09/28/24 16:44 Ur Specific [place] 1.030 (1.005-1.030) 09/28/24 16:44 Urine Protein Trace (Negative) A 09/28/24 16:44 Urine Glucose (UA) 3+ (Normal) H 09/28/24 16:44 Urine Ketones Trace (Negative) 09/28/24 16:44 Urine Blood 1+ (Negative) A 09/28/24 16:44 Urine Nitrate Positive (Negative) A 09/28/24 16: Urine Bilirubin Negative (Negative) 09/28/24 16: Urine Urobilinogen 1.0 mg/dL (Negative) 09/28/24 16:44 Ur Leukocyte Esterase Trace (Negative) A 09/28/24 16:44 Urine RBC 0-2 /hpf (0-2) 09/28/24 16:44 Urine WBC 11-20 /hpf (0-5) H 09/28/24 16:44 Ur Squamous Epith Cells 11-20 /hpf (0-5) H 09/28/24 16:44 Amorphous Sediment Not Reportable 09/28/24 16:44 Urine Bacteria 1+ /hpf (NONE) H 09/28/24 16:44 Hyaline Casts 0-4 /lpf H 09/28/24 16:44 Influenza A (PCR) Negative (Negative) 09/28/24 16:29 Influenza Type B (PCR) Negative (Negative) 09/28/24 16:29 RSV (PCR) Negative (Negative) 09/28/24 16:29 SARS-CoV-2 (PCR) Negative (Negative) 09/28/24 16:29 All radiology interpretation(s) finalized by discharge Discharge Plan Discharge Patient Disposition: Admitted As Inpatient Clinical Impression: Atrial fibrillation with rapid ventricular response, Urinary tract infection, Dehydration Condition: Stable Coding Level of Care Code ED [facility] for Viridiana Zelaya
[2024-09-28 16:41] LABS: Basophils % 0.4 %; Eosinophils # 0.1 10^3/uL (0.0-0.8); Eosinophils % 1.2 %; Hematocrit 42.3 % (36-47); Lymphocytes # 3.1 10^3/uL (0.8-4.8); Lymphocytes % 28.3 %; Mean Corpuscular HGB Conc 32.9 g/dL (30-55); Mean Corpuscular Hemoglobin 30.1 pg (27-33); Mean Corpuscular Volume 91.6 fl (85-98); Mean Platelet Volume 10.9 fL (7.4-10.4); Monocytes # 1.1 10^3/uL (0.2-0.9); Neutrophils # 6.42 10^3/uL (1.8-7.7); Neutrophils % 59.3 %; Nucleated Red Blood Cells % 0 %; Platelet Count 255 10^3/cmm (157-399); Red Blood Count 4.62 10^6/uL (3.85-5.65); Red Cell Distribution Width 14.6 % (12.1-15.1); White Blood Count 10.82 10^3/uL (3.29-11.43)
[2024-09-28 16:58] LABS: Bilirubin Urine Negative (Negative); Blood Urine 1+ (Negative); Glucose Urine UA 3+ (Normal); Ketones Urine Trace (Negative); Leukocyte Esterase Urine Trace (Negative); Nitrate Urine Positive (Negative); Protein Urine Trace (Negative); Urine Appearance Clear (CLEAR); Urine Color Yellow (Yellow)
[2024-09-28 17:00] LABS: Bacteria Urine 1+ /hpf; Hyaline Casts Urine 0-4 /lpf; RBC Urine 0-2 /hpf (0-2)
[2024-09-28 17:02] LABS: Lactic Sepsis W/Reflex 2.8 mmol/L (0.5-2.2)
[2024-09-28 17:03] LABS: Add Urine Culture? No
[2024-09-28 17:11] LABS: Troponin(5th) Baseline 12 ng/L (0-10)
[2024-09-28 17:21] LABS: Alanine Aminotransferase 20 U/L (0-33); Alkaline Phosphatase 88 U/L (35-105); Anion Gap 20.8 (5-19); Aspartate Amino Transferase 24 U/L (0-32); Blood Urea Nitrogen 15 mg/dL (8-23); C Reactive Protein 47.1 mg/L (0.0-4.9); Calcium 9.4 mg/dL (8.5-10.5); Carbon Dioxide 22 mmol/L (22-29); Chloride 100 mmol/L (98-107); Globulin 2.1 g/dL (1.3-4.6); Glucose 144 mg/dL (65-115); Magnesium 1.8 mg/dL (1.7-2.3); NT Pro B Type Natriuretic Pept 47 pg/mL (0-125); Osmolality Calculated 291 mOsm/kg (285-295); Potassium 3.8 mmol/L (3.5-5.1); Sodium 139 mmol/L (136-145); Thyroid Stimulating Hormone 0.66 uIU/mL (0.27-4.20); Total Bilirubin 0.2 mg/dL (0.15-1.2); Total Protein 6.1 g/dL (6.6-8.7)
[2024-09-28 17:24] LABS: Influenza A NEGATIVE (Negative); Influenza B NEGATIVE (Negative); Respiratory Syncytial Virus Ce NEGATIVE (Negative); SARS-CoV-2 PCR NEGATIVE (Negative)
[2024-09-28] MEDS: dilTIAZem 5 mg/mL SDV 5 mL 10 MG IVP (17:26)
[2024-09-28] MEDS: cefTRIAXone 1,000 mg SDV 1000 MG IVP (17:26)
[2024-09-28] MEDS: dilTIAZem 100 MG in sodium chloride 0.9% (add-van) 100 ML IV (17:27)
[2024-09-28] MEDS: sodium chloride 0.9% 1,000 ML 999 ML IV ×2 (17:27→18:29)
--- NOTE | 2024-09-28 18:13 | ECG_ITS ---
[facility] Test Date: 2024-09-28 Pat Name: Mel Calderon Department: Room: 105 Gender: Female Outpatient Therapist: : 1960 Requested By: Lina Anne Order Number: [id number] Nataly MD: Fili Laguna M.D. Measurements Intervals [place] Rate: 97 P: 38 CA: 151 QRS: 24 QRSD: 81 T: 29 QT: 265 QTc: 338 Interpretive Statements SINUS RHYTHM NONSPECIFIC T-WAVE ABNORMALITY Compared to ECG 09/28/2024 16:03:46 T-wave abnormality now present Sinus tachycardia no longer present ST (T wave) deviation no longer present Electronically Signed On 09-29-2024 18:23:05 CDT by Fili Laguna M.D. [id number] [id number]
--- NOTE | 2024-09-28 18:17 | PC.NURSE ---
attempted to call report, CSU reports direct admit arrived at same time, to call back
[2024-09-28 18:26] LABS: Reflex Lactate Order REFLEX LACTIC ORDERD
--- NOTE | 2024-09-28 18:36 | PM.HP ---
Providers/Chief Complaint Admitting Physician: Pascual Gutierrez MD Primary Care Provider: Pk Rojas MD Chief Complaint: CP sob History of Present Illness Mel Calderon is a 63 year old female who comes in with progressive increase in frequency of paroxysmal atrial fibrillation runs. She states that last few days she has pounding in her neck feels fatigued and dizzy. She is dyspneic on exertion and has sometimes coughing despite not being sick. She has had leg swelling sometimes 2-3 times size. She has had sleep apnea symptoms and states she stops breathing in 10 minutes sometimes none but sometimes 3 times a minute. Patient snores and pauses her breathing then has to catch up breathing. She has not been treated because she did not want to wear the mask. Patient has not been on blood thinner despite having atrial fibrillation for 13 years. She denies bleeding problem or anemia. She is on metoprolol and diltiazem for rate control. Is not clear to me how much A-fib run she previously had but per her report recently it has more frequent. She has had chest pressure. 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 or discharge Neuro no seizures no strokes Hematologic no cancers clots in legs clots in the lungs or bleeding disorder Medications/Allergies Home Medications ?Medication ?Instructions ?Recorded ?Confirmed ?Last Taken ?Type diltiazem HCl 180 mg capsule,24 180 mg PO DAILY 07/31/20 06/24/24 Unknown History hr,extended release furosemide 20 mg tablet 20 mg PO DAILY PRN Edema 07/31/20 06/24/24 Unknown History metoprolol tartrate 50 mg tablet 50 mg PO DAILY 07/31/20 06/24/24 Unknown History ibuprofen 800 mg tablet 800 mg PO TID PRN PAIN 08/08/21 06/24/24 Unknown History albuterol sulfate 2.5 mg/3 mL 2.5 mg (3 mL) inhalation Q4H PRN 08/13/21 06/24/24 Unknown Rx (0.083 %) solution for nebulization shortness of breath or wheezing #90 mL cetirizine 10 mg tablet 10 mg PO DAILY PRN Allergy 11/05/21 06/24/24 Unknown Rx Symptoms #90 tabs clonazepam 1 mg tablet 1 mg PO BID #60 tabs 01/07/22 06/24/24 Unknown Rx fluoxetine 60 mg tablet 60 mg PO QAM #90 tabs 01/07/22 06/24/24 Unknown Rx nystatin 100,000 unit/mL oral See Rx Instructions .Route 12/04/23 06/24/24 Unknown Rx suspension .COMPLEX #140 mL estradiol 0.01% (0.1 mg/gram) 1 appful vaginal DAILY #42.5 grams 04/18/24 06/24/24 Unknown Rx vaginal cream (Estrace) tolterodine 4 mg capsule,extended 4 mg PO DAILY 04/18/24 05/17/24 Unknown History release 24 hr estradiol 1 mg tablet See Rx Instructions .Route 08/05/24 Unknown Rx .COMPLEX #30 tabs medroxyprogesterone 2.5 mg tablet See Rx Instructions .Route 08/05/24 Unknown Rx .COMPLEX #30 tabs vibegron 75 mg tablet (Gemtesa) See Rx Instructions .Route 08/05/24 Unknown Rx .COMPLEX #30 tabs denosumab 60 mg/mL subcutaneous mg SUBCUT 08/24/24 08/24/24 Unknown History syringe (Prolia) hydrocodone 5 mg-acetaminophen 325 1 tab PO Q8H PRN severe pain 08/24/24 08/24/24 Unknown Rx mg tablet (scale score 7-10) 30 days #90 tabs hydroxychloroquine 200 mg tablet 200 mg PO BID #180 tabs 08/24/24 08/24/24 Unknown Rx omeprazole 20 mg capsule,delayed 20 mg PO DAILY #90 caps 08/24/24 08/24/24 Unknown Rx release prednisone 5 mg tablet 5 mg PO DAILY #90 tabs 08/24/24 08/24/24 Unknown Rx tofacitinib 5 mg tablet (Xeljanz) 5 mg PO BID #180 tabs 08/24/24 08/24/24 Unknown Rx prednisone 20 mg tablet See Rx Instructions .Route 09/05/24 Unknown Rx .COMPLEX #30 tabs Allergies Allergy/AdvReac Type Severity Reaction Status Date / Time meloxicam Allergy Severe vomiting Verified 06/24/24 11:01 blood methotrexate Allergy Unknown infections Verified 06/24/24 11:01 aripiprazole Allergy Unknown Verified 06/24/24 11:01 diclofenac (From Voltaren) Allergy Unknown Verified 06/24/24 11:01 Sulfa (Sulfonamide Allergy Unknown Verified 06/24/24 11:01 Antibiotics) PFSH Acute PFSH: Medical History (Updated 09/28/24 @ 18:45 by Pascual Gutierrez MD) Obstructive sleep apnea hypopnea, moderate Greater trochanteric pain syndrome of left lower extremity Bronchitis 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 Immunization counseling High risk medication use Inflammatory arthritis Hypertension GERD (gastroesophageal reflux disease) Fibromyalgia Osteoarthritis Depression IBS (irritable bowel syndrome) Surgical History History of appendectomy Family History Sister Breast cancer Mother Diabetes Father Diabetes Other Cancer Denies family history of Ovarian cancer CAD (coronary artery disease) Dementia Heart disease Psychiatric illness Chronic kidney disease (CKD) Lung disease Hypertension Uterine cancer Thyroid disease Stroke Social History (Updated 09/28/24 @ 18:42 by Pascual Gutierrez MD) Smoking and tobacco/nicotine status: current every day tobacco/nicotine user (pt smokes 1 pack per day) cigarettes Packs smoked per day: 1 Alcohol intake: never Substance/Drug Use: never Additional social history: Wants full CODE STATUS Lives independently: Yes Household members: spouse and children Marital status: Marital status details: Geronimo present at bedside Previous occupational history: 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 Standing at bedside walking in place heart rate goes from 97-106 remains sinus Lungs diminished breath sounds in the bases Abdomen positive bowel sounds soft nontender Calves 1+ pretibial edema no asymmetry tenderness or cords Neuro alert and oriented x 3 moves all extremities symmetrically. She is able to stand at bedside and walk in place. Psych anxious mildly depressed receptive to counseling Data 09/28/24 16:26 09/28/24 16:26 Micro: Microbiology 09/28/24 16:26 Blood Culture - Preliminary Blood SPECIMEN COLLECTED 09/28/24 16:34 Blood Culture - Preliminary Blood SPECIMEN COLLECTED A&P Assessment and plan (1) Atrial fibrillation with rapid ventricular response: Patient is admitted to the hospital on observation. She was on night diltiazem drip but that can be weaned off as she is now sinus tachycardia. Increase metoprolol to 50 mg twice a day increase diltiazem to 240 mg daily start apixaban 5 mg twice a day. Replace potassium to greater than 4 replace magnesium to greater than 2. She should be treated for sleep apnea (2) Obstructive sleep apnea hypopnea, moderate: Patient counseled regarding sleep apnea and smoking worsening her A-fib and lung disease. She is agreeable to trying CPAP and they will be tried in the hospital and she is going to pursue on outpatient due to claustrophobia recommend starting on a nasal CPAP or nasal pillows if pressures are not too high (3) Seropositive rheumatoid arthritis of multiple sites: Stable. Patient had elevated lactic acid. Will recheck (4) YAMILKA (generalized anxiety disorder): Continue fluoxetine and clonazepam. Consider lowering the fluoxetine if able due to A-fib PDMP PDMP Reviewed: Not Reviewed Attestations Medical Necessity Statement*: Patient will be admitted to the hospital in observation. Her hospitalization is not expected to span greater than 1 midnight Coding Level of Care Code Acute Code for Chg Fwd Diagnoses Atrial fibrillation with rapid ventricular response I48.91 Obstructive sleep apnea hypopnea, moderate G47.33 Seropositive rheumatoid arthritis of multiple sites M05.79 YAMILKA (generalized anxiety disorder) F41.1 Time Spent (min) 70
[2024-09-28 18:51] LABS: Troponin 5 2HR 12.06 ng/L (0-10); Troponin 5 2HR Delta 0.06 ABS# (0-10)
[2024-09-28 19:25] LABS: Lactic Acid level (Lactate) 1.4 mmol/L (0.5-2.2)
[2024-09-28] MEDS: apixaban 5 mg Tablet PO (21:34)
[2024-09-28] MEDS: magnesium sulfate premix 1 GM/100 ML PIGGYBACK IV (21:34)
[2024-09-28] MEDS: metoprolol tartrate 50 mg Tablet PO (21:34)
[2024-09-28] MEDS: CLONazepam 1 mg Tablet PO (21:34)
[2024-09-28] MEDS: potassium chloride ER 20 mEq Tablet 40 MEQ PO (21:34)
--- NOTE | 2024-09-28 22:20 | ECG_ITS ---
[facility] Date: [facility]24-[facility]28 Pat Name: Mel Calderon Department: Room: 105 Gender: Female Personnel Associate: : 1960 Requested By: Lina Anne Order Number: [id number] Nataly MD: Fili Laguna M.D. Measurements Intervals [place] Rate: 85 P: -37 MD: 127 QRS: 41 QRSD: 89 T: 69 QT: 391 QTc: 466 Interpretive Statements SINUS RHYTHM NONSPECIFIC T-WAVE ABNORMALITY Compared to ECG 09/28/2024 18:13:23 No significant changes Electronically Signed On 09-29-2024 18:20:49 CDT by Fili Laguna M.D. [email or web address] [id number]
[2024-09-28] MEDS: albuterol 2.5 mg/3 mL Neb INHALATION (22:36)
[2024-09-29] MEDS: potassium chloride ER 20 mEq Tablet 40 MEQ PO ×2 (02:25→08:43)
--- NOTE | 2024-09-29 03:45 | ECG_ITS ---
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 Measurements Intervals [place] Rate: 67 P: 37 ND: 151 QRS: 24 QRSD: 86 T: 66 QT: 438 QTc: 465 Interpretive Statements SINUS RHYTHM NONSPECIFIC T-WAVE ABNORMALITY Compared to ECG 09/28/2024 22:20:56 No significant changes Electronically Signed On 09-29-2024 18:05:44 CDT by Fili Laguna M.D. [email or web address] [id number]
[2024-09-29 04:00] VITALS: BP 146/82; PULSE 66; RESP 34; TEMP 36.7; O2SAT 97
[2024-09-29] MEDS: HYDROcodone-acetaminophen 5-325 mg Tablet 1 TAB PO (04:06)
[2024-09-29 04:35] LABS: Blood Urea Nitrogen 8 mg/dL (8-23); Calcium 8.1 mg/dL (8.5-10.5); Carbon Dioxide 23 mmol/L (22-29); Chloride 105 mmol/L (98-107); Creatinine Clr Calc Pharmacy 88.7179; Glomerular Filtration Rate 100.3 mL/min (90-130); Glucose 132 mg/dL (65-115); Osmolality Calculated 284 mOsm/kg (285-295); Sodium 137 mmol/L (136-145)
[2024-09-29 04:36] LABS: Anion Gap 13.4 (5-19); Potassium 4.4 mmol/L (3.5-5.1)
[2024-09-29] MEDS: fluoxetine 20 mg Capsule 60 MG PO (06:32)
[2024-09-29] MEDS: FUROsemide 10 mg/mL SDV 2mL 20 MG IVP (06:32)
[2024-09-29 08:00] VITALS: BP 116/66; PULSE 67; RESP 22; TEMP 36.4; O2SAT 93
[2024-09-29] MEDS: tolterodine 2 mg Tablet 4 MG PO (08:40)
[2024-09-29] MEDS: apixaban 5 mg Tablet PO (08:40)
[2024-09-29] MEDS: magnesium oxide 400 mg tablet PO (08:43)
[2024-09-29] MEDS: pantoprazole DR 40 mg Tablet PO (08:43)
[2024-09-29] MEDS: dilTIAZem ER (24HR) 240 mg Capsule PO (08:43)
[2024-09-29] MEDS: CLONazepam 1 mg Tablet PO (08:43)
[2024-09-29] MEDS: metoprolol tartrate 50 mg Tablet PO (08:52)
--- NOTE | 2024-09-29 10:04 | PM.DCS ---
Discharge Providers Date of Admission: 09/28/24 18:01 Date of Discharge: September 29, 2024 Attending Provider at Admission: Pascual Gutierrez MD Attending Provider at Discharge: Pascual Gutierrez MD Primary Care Provider: Pk Rojas MD Diagnoses at Discharge Discharge Diagnosis (1) Atrial fibrillation with rapid ventricular response: Details from hospital stay: She is in sinus rhythm heart rate 67 continue with metoprolol 50 mg twice a day and diltiazem 240 mg daily. Magnesium oxide 400 mg daily follow-up with primary care physician in 1 week. Consider diuretics and potassium replacement if retaining fluid Status: Acute (2) Obstructive sleep apnea hypopnea, moderate: Details from hospital stay: Patient tolerated CPAP pressure 5 cmH2O with a [employer] Powertrain wisp nasal mask small medium size Status: Acute (3) Seropositive rheumatoid arthritis of multiple sites: Details from hospital stay: Stable Status: Acute (4) YAMILKA (generalized anxiety disorder): Details from hospital stay: Stable Status: Acute Reason for Visit Reason for Visit: CP sob Brief History: Mel Calderon is a 63 year old female who comes in with progressive increase in frequency of paroxysmal atrial fibrillation runs. She states that last few days she has pounding in her neck feels fatigued and dizzy. She is dyspneic on exertion and has sometimes coughing despite not being sick. She has had leg swelling sometimes 2-3 times size. She has had sleep apnea symptoms and states she stops breathing in 10 minutes sometimes none but sometimes 3 times a minute. Patient snores and pauses her breathing then has to catch up breathing. She has not been treated because she did not want to wear the mask. Patient has not been on blood thinner despite having atrial fibrillation for 13 years. She denies bleeding problem or anemia. She is on metoprolol and diltiazem for rate control. Is not clear to me how much A-fib run she previously had but per her report recently it has more frequent. She has had chest pressure. She has never had a heart attack Hospital Course Hospital Course 63-year-old female admitted with increasing frequency of paroxysmal A-fib. Potassium 3.8 magnesium 1.8 were replaced to 4.4 and 2.0. Patient's lactic acid 2.8 at follow-up in 2 hours after rate control was 1.4. There was question of UTI however she has no dysuria and her urine sample was contaminated with lots of squamous cells. She received Rocephin but that was discontinued Today the patient tells me that she uses CPAP overnight at pressure of 5 and did well likes it and will continue at home. She needs to work out with her primary care physician and insurance whether or not she can get CPAP affordably. I discussed with her that CPAP can be bought self-pay for AirSense 10 AutoSet at $499 online but would need supplies additionally totaling about 150 more. Beyond that can be bought on the used market with some diligence Patient's Kaveh Vasc score is 3 so we discussed anticoagulation and she would like to proceed. Start apixaban 5 mg twice a day Patient states she is going to stop smoking. Today's patient is in sinus rhythm with heart rate of 67. Her metoprolol and diltiazem were increased this admission Physical Exam Narrative: General Well-developed obese female in no acute cardiopulmonary distress CV regular rate and rhythm Lungs diminished breath sounds in the bases with trace crackles improved with deep breath Abdomen positive bowel sounds soft nontender Calves trace pretibial edema no asymmetry tenderness or cords Neuro alert and oriented x 3 moves all extremities symmetrically. Psych anxious mildly depressed receptive to counseling and states she is enthusiastic about getting on CPAP did well overnight tolerating it surprisingly well. She is also going to stop smoking Discharge Data Studies Completed and Pending Completed Studies During Hospitalization Category Date Time Status XR chest 1V portable [id number] Stat Exams 09/28/24 16:20 Completed Pending at discharge Category Date Time Status Blood Culture Stat Lab 09/28/24 16:34 Results Urinalysis Routine Lab 09/28/24 18:27 Ordered Radiology Impressions Chest X-Ray 09/28/24 16:20 IMPRESSION: No acute findings. Laboratory Results WBC 10.82 10^3/uL (3.29-11.43) 09/28/24 16:26 RBC 4.62 10^6/uL (3.85-5.65) 09/28/24 16:26 Hgb 13.90 g/dL (11.27-16.99) 09/28/24 16:26 Hct 42.3 % (36-47) 09/28/24 16:26 MCV 91.6 fl (85-98) 09/28/24 16:26 MCH 30.1 pg (27-33) 09/28/24 16:26 MCHC 32.9 g/dL (30-55) 09/28/24 16: RDW 14.6 % (12.1-15.1) 09/28/24 16: Plt Count 255 10^3/cmm (157-399) 09/28/24 16: MPV 10.9 fL (7.4-10.4) H 09/28/24 16: Neut % (Auto) 59.3 % 09/28/24 16: Lymph % (Auto) 28.3 % 09/28/24 16:26 [place] % (Auto) 10.0 % 09/28/24 16: Eos % (Auto) 1.2 % 09/28/24 16: Baso % (Auto) 0.4 % 09/28/24 16: Neut # (Auto) 6.42 10^3/uL (1.8-7.7) 09/28/24 16: Lymph # (Auto) 3.1 10^3/uL (0.8-4.8) 09/28/24 16: [place] # (Auto) 1.1 10^3/uL (0.2-0.9) H 09/28/24 16: Eos # (Auto) 0.1 10^3/uL (0.0-0.8) 09/28/24 16: Baso # (Auto) 0.0 10^3/uL (0.0-0.1) 09/28/24 16: Nucleated RBC % (auto) 0 % 09/28/24 16: Nucleated RBCs # 0.0 /100WBC 09/28/24 16:26 Sodium 137 mmol/L (136-145) 09/29/24 03:51 Potassium 4.4 mmol/L (3.5-5.1) 09/29/24 03:51 Chloride 105 mmol/L (98-107) 09/29/24 03:51 Carbon Dioxide 23 mmol/L (22-29) 09/29/24 03:51 Anion Gap 13.4 (5-19) 09/29/24 03:51 BUN 8 mg/dL (8-23) 09/29/24 03:51 Creatinine 0.6 mg/dL (0.5-0.9) 09/29/24 03:51 GFR Calculation 100.3 mL/min (90-130) 09/29/24 03:51 Glucose 132 mg/dL (65-115) H 09/29/24 03:51 Calculated Osmolality 284 mOsm/kg (285-295) L 09/29/24 03:51 Lactic Acid 2.8 mmol/L (0.5-2.2) H 09/28/24 16:26 Lactic Acid (Sepsis) 1.4 mmol/L (0.5-2.2) 09/28/24 19:04 Calcium 8.1 mg/dL (8.5-10.5) L 09/29/24 03:51 Magnesium 2.0 mg/dL (1.7-2.3) 09/29/24 03:51 Total Bilirubin 0.2 mg/dL (0.15-1.2) 09/28/24 16:26 AST 24 U/L (0-32) 09/28/24 16:26 ALT 20 U/L (0-33) 09/28/24 16:26 Alkaline Phosphatase 88 U/L (35-105) 09/28/24 16:26 Troponin T Baseline 12 ng/L (0-10) H 09/28/24 16:26 Troponin T 120 Minute 12.06 ng/L (0-10) H 09/28/24 18:25 Delta Troponin T 0.06 ABS# (0-10) 09/28/24 18:25 Troponin T Hi Sens 6Hr 12.60 ng/L (0-10) H 09/28/24 22:49 Troponin T Hi Sens 6Hr Delta 0.60 ng/L (0-12) 09/28/24 22:49 C-Reactive Protein 47.1 mg/L (0.0-4.9) H 09/28/24 16:26 NT-Pro-B Natriuret Pep 47 pg/mL (0-125) 09/28/24 16:26 Total Protein 6.1 g/dL (6.6-8.7) L 09/28/24 16:26 Albumin 4.0 g/dL (3.5-5.2) 09/28/24 16:26 Globulin 2.1 g/dL (1.3-4.6) 09/28/24 16:26 TSH 0.66 uIU/mL (0.27-4.20) 09/28/24 16:26 Urine Color Yellow (Yellow) 09/28/24 16:44 Urine Appearance Clear (CLEAR) 09/28/24 16:44 Urine pH 5.0 (5-7) 09/28/24 16:44 Ur Specific [place] 1.030 (1.005-1.030) 09/28/24 16:44 Urine Protein Trace (Negative) A 09/28/24 16:44 Urine Glucose (UA) 3+ (Normal) H 09/28/24 16:44 Urine Ketones Trace (Negative) 09/28/24 16:44 Urine Blood 1+ (Negative) A 09/28/24 16:44 Urine Nitrate Positive (Negative) A 09/28/24 16: Urine Bilirubin Negative (Negative) 09/28/24 16: Urine Urobilinogen 1.0 mg/dL (Negative) 09/28/24 16:44 Ur Leukocyte Esterase Trace (Negative) A 09/28/24 16:44 Urine RBC 0-2 /hpf (0-2) 09/28/24 16:44 Urine WBC 11-20 /hpf (0-5) H 09/28/24 16:44 Ur Squamous Epith Cells 11-20 /hpf (0-5) H 09/28/24 16:44 Amorphous Sediment Not Reportable 09/28/24 16:44 Urine Bacteria 1+ /hpf (NONE) H 09/28/24 16:44 Hyaline Casts 0-4 /lpf H 09/28/24 16:44 Influenza A (PCR) Negative (Negative) 09/28/24 16:29 Influenza Type B (PCR) Negative (Negative) 09/28/24 16:29 RSV (PCR) Negative (Negative) 09/28/24 16:29 SARS-CoV-2 (PCR) Negative (Negative) 09/28/24 16:29 Vitals Last Vital Signs Temp 97.5 F L 09/29/24 08:00 Pulse 67 09/29/24 08:00 Resp 22 H 09/29/24 08:00 BP 116/66 09/29/24 08:00 Pulse Ox 93 09/29/24 08:00 O2 Del Method Room Air 09/29/24 08:00 FiO2 21 09/28/24 22:15 Discharge Plan Discharge Patient Disposition: Home Condition: Stable Prescriptions: New diltiazem HCl 240 mg Capsule,Extended Release 24hr 240 mg PO DAILY Qty: 30 1RF magnesium oxide 400 mg (241.3 mg magnesium) Tablet 400 mg PO DAILY Qty: 30 1RF metoprolol tartrate 50 mg Tablet 50 mg PO BID@0900,2100 Qty: 60 1RF Eliquis 5 mg Tablet 5 mg PO BID@0900,2100 Qty: 60 1RF nicotine 21 mg/24 hr patch 24 hour 1 patch transdermal DAILY Qty: 7 0RF nicotine 14 mg/24 hr patch 24 hour 1 patch transdermal DAILY Qty: 14 0RF Continued furosemide 20 mg tablet 20 mg PO DAILY PRN (Reason: Edema) ibuprofen 800 mg tablet 800 mg PO TID PRN (Reason: PAIN) albuterol sulfate 2.5 mg /3 mL (0.083 %) solution for nebulization 2.5 mg inhalation Q4H PRN (Reason: shortness of breath or wheezing) Qty: 90 0RF clonazepam 1 mg tablet 1 mg PO BID Qty: 60 5RF fluoxetine 60 mg tablet 60 mg PO QAM Qty: 90 3RF methylprednisolone acetate [Depo-Medrol] 40 mg/mL suspension 40 mg intra-articular ONCE Qty: 1.5 0RF lidocaine (PF) 10 mg/mL (1 %) solution 10 mg intra-articular ONCE Qty: 8 0RF tolterodine 4 mg capsule,extended release 24hr 4 mg PO DAILY estradiol [Estrace] 0.01 % (0.1 mg/gram) cream 1 appful vaginal DAILY Qty: 42.5 3RF Rx Instructions: for 14 days, then one applicator intravaginally two times per week Prolia 60 mg/mL syringe SUBCUT hydrocodone-acetaminophen 5-325 mg tablet 1 tab PO Q8H PRN (Reason: severe pain (scale score 7-10)) 30 Days Qty: 90 0RF hydroxychloroquine 200 mg tablet 200 mg PO BID Qty: 180 1RF omeprazole 20 mg capsule,delayed release(DR/EC) 20 mg PO DAILY Qty: 90 1RF prednisone 5 mg tablet 5 mg PO DAILY Qty: 90 1RF Xeljanz 5 mg tablet 5 mg PO BID Qty: 180 1RF cetirizine 10 mg tablet 10 mg PO DAILY PRN (Reason: Allergy Symptoms) Qty: 90 3RF nystatin 100,000 unit/mL suspension See Rx Instructions .ROUTE .COMPLEX Qty: 140 0RF Dose Instruction: SWISH & SWALLOW 5 ML BY MOUTH 4 TIMES DAILY FOR 7 DAYS Rx Instructions: SWISH & SWALLOW 5 ML BY MOUTH 4 TIMES DAILY FOR 7 DAYS medroxyprogesterone 2.5 mg tablet See Rx Instructions .ROUTE .COMPLEX Qty: 30 10RF Dose Instruction: TAKE 1 TABLET BY MOUTH EVERY DAY Rx Instructions: TAKE 1 TABLET BY MOUTH EVERY DAY Gemtesa 75 mg tablet See Rx Instructions .ROUTE .COMPLEX Qty: 30 10RF Dose Instruction: TAKE 1 TABLET BY MOUTH EVERY DAY Rx Instructions: TAKE 1 TABLET BY MOUTH EVERY DAY estradiol 1 mg tablet See Rx Instructions .ROUTE .COMPLEX Qty: 30 10RF Dose Instruction: TAKE 1 TABLET BY MOUTH EVERY DAY Rx Instructions: TAKE 1 TABLET BY MOUTH EVERY DAY prednisone 20 mg tablet See Rx Instructions .ROUTE .COMPLEX Qty: 30 1RF Dose Instruction: take 1/2 to 1 tablet BY MOUTH EVERY DAY UP TO SEVEN DAYS NEEDED FOR joint pain wilfredo Rx Instructions: take 1/2 to 1 tablet BY MOUTH EVERY DAY UP TO SEVEN DAYS NEEDED FOR joint pain wilfredo Discontinued diltiazem HCl 180 mg capsule,extended release 24 hr 180 mg PO DAILY metoprolol tartrate 50 mg tablet 50 mg PO DAILY Discharge Orders: Discharge Order (Routine); Ordered 09/29/24 Ordered By: Pascual Gutierrez Referrals: Pk Rojas MD [Primary Care Provider, Internal Medicine] - 10/07/24 8:20 am Referral Note: need to get setup for CPAP testing or prescription for 5-10 autoset Resmed 10 Problems: Atrial fibrillation with rapid ventricular response; Obstructive sleep apnea hypopnea, moderate Discharge Diet: Cardiac Discharge Activity: Increase activity as tolerated and Cpap/Bipap as instructed Patient Instructions: Metoprolol (By mouth) (Lopressor, Toprol XL), Diltiazem (By mouth) (Cardizem, Cardizem CD, Cardizem LA, Cardizem SR), Magnesium (By mouth), Apixaban (By mouth) (Eliquis), A-fib (Atrial Fibrillation) (DC), Dehydration (DC), Urinary Tract Infection in Women (DC), Opioid Safety, Obstructive Sleep Apnea Activity Restrictions/Additional Instructions: limit your calories to 1500 daily for wt loss. goal wt loss is 2lbs weekly. If losing more than that increase calories by 100 calories a day. IF losing less than 2lbs weekly decrease calories by 100 calories a day. Stop smoking as intended. Nicotine patch if needed Start CPAP with Resmed Airsense 10 Autoset machine set at 5-10 is recommended Nasal or nasal pillow mask such as Resmed P30i or P10 or [employer] Nova micro tolerated well Respironics Wisp S/M here Or get tested and go through insurance. The new machine is Airsense 11 Autoset but if buying self pay the Autoset 10 is good and supplies from marketplace are much easier to come by Discharge Attestations Time Spent in Discharge Care*: greater than 30 min Quality Metrics Clinical Quality Measures [ No reported AMI, CVA or VTE this stay] Coding Level of Care Code 32689 Diagnoses Atrial fibrillation with rapid ventricular response I48.91 Obstructive sleep apnea hypopnea, moderate G47.33 Seropositive rheumatoid arthritis of multiple sites M05.79 YAMILKA (generalized anxiety disorder) F41.1 Time Spent (min) 50
--- NOTE | 2024-09-29 10:13 | PC.NURSE ---
meds to bed called in called new Rx to [facility].
[2024-09-29 11:11] VITALS: BP 119/69; PULSE 50; O2SAT 100
== END 2024-09-29 11:12 | disposition home or self-care (01) ==
LOC: ER 17:31 → CSU 19:08
PROVIDERS: Admitting Provider Internal Medicine; Emergency Provider Emergency Medicine; PCP Internal Medicine; Visit Provider Internal Medicine
DX: I48.0 Paroxysmal atrial fibrillation (principal); G47.33 Obstructive sleep apnea (adult) (pediatric); M05.79 Rheumatoid arthritis with rheumatoid factor of multiple sites without organ or systems involvement; F41.1 Generalized anxiety disorder; K21.9 Gastro-esophageal reflux disease without esophagitis; I10 Essential (primary) hypertension; F32.A Depression, unspecified; M79.7 Fibromyalgia; F17.210 Nicotine dependence, cigarettes, uncomplicated; G89.4 Chronic pain syndrome; E66.9 Obesity, unspecified; Z68.39 Body mass index [BMI] 39.0-39.9, adult
CPT/HCPCS: 36415; 71045; 80048; 80053; 81001; 83605; 83735; 83880; 84443; 84484; 85025; 86140; 87040; 87637; 93005; 94660; 94664; 96374; 96375; 96376; 99285; G0378; J0696; J1938; J3475; J3490; J7030; J7613; J9999

== ENCOUNTER 2024-10-12 10:53 | Outpatient (CLI) | payer MEDICARE, MEDICAID, SELFPAY ==
--- NOTE | 2024-10-12 11:04 | MM_ITS ---
WS: [id number] BILATERAL 3D TOMOSYNTHESIS DIGITAL SCREENING MAMMOGRAPHY WITH CAD CLINICAL INFORMATION: SCREENING HISTORY: Screening mammogram. No current complaints. COMPARISON: 2017 TECHNIQUE: Bilateral CC and MLO views. FINDINGS: Scattered fibroglandular densities bilaterally. No suspicious focal mass, asymmetry, calcifications, or architectural distortion. No evidence of malignancy. Punctate and lucent centered calcifications. Vascular calcifications MM/MM scr BI tomosynthesis [id number] IMPRESSION: DENSITY: There are scattered areas of fibroglandular density. BI-RADS: 2 - Benign. FOLLOW UP: 1 Year Follow-up Recommend return to annual screening mammography.
== END 2024-10-12 10:54 | disposition home or self-care (01) ==
LOC: RAD 10:58
PROVIDERS: PCP Internal Medicine; Visit Provider Internal Medicine
DX: Z12.31 Encounter for screening mammogram for malignant neoplasm of breast (principal); R92.323 Mammographic fibroglandular density, bilateral breasts; R92.1 Mammographic calcification found on diagnostic imaging of breast
CPT/HCPCS: 77063; 77067

== ENCOUNTER 2025-01-30 08:59 | Outpatient (CLI) | payer MEDICARE, MEDICAID, SELFPAY ==
[2025-01-30 09:15] VITALS: BMI 36.8
--- NOTE | 2025-01-30 09:17 | ECG_ITS ---
[facility]25[facility] Pat Name: Mel Calderon Department: Room: Gender: Female Food Handler: : 1960 Requested By: Pk Rojas Order Number: [id number] Nataly MD: TEE KESSLER Interpretive Statements Lung unchanged pre/post procedure; Intraprocedure shortess of breath; Symptoms resoled by discharge NOTE: Please note that this is the electrocardiogram portion of the Lexiscan/Sestamibi stress test. The perfusion scan will be documented separately. DATA: Baseline heart rate was 77 beats per minute. Baseline blood pressure was 136/88 millimeters of mercury. Target heart rate was 154. Maximum heart rate achieved was 82. which was 53% of the predicted target heart rate. Maximum blood pressure was 139/99 millimeters of mercury. The reason for ending the test was [completion of the protocol]. The patient did not experience any symptoms. ELECTROCARDIOGRAM: BASELINE: Sinus rhythm. Normal axis. Otherwise, no ST-T changes suggestive of ischemia noted. No arrhythmia noted. [] EXERCISE: After Lexiscan injection, no ST-T changes suggestive of ischemic noted. No arrhythmia noted. [] CONCLUSION: Please note due to baseline abnormality of the EKG specificity and sensitivity of the EKG portion of LexiScan MIBI stress test will be low 1. [EKG not suggestive of ischemia] 2. [Lexiscan injection unremarkable]. 3. Perfusion scan will be documented separately. Electronically Signed On 02-19-2025 21:18:16 CDT by TEE KESSLER [email or web address]
--- NOTE | 2025-01-30 09:18 | NMCV_ITS ---
NM xiomara perf SPECT r/s* [id number] Mel Calderon Age: 64 Gender: F : 1960 Exam Date: 01/30/2025 09:54 Ordering Phys: Pk Rojas MD Technologist: NADIA Pierre Exam Location: [facility] Indications: cp STRESS TEST Please see separate stress test report in [facility] for full findings IMAGE PROTOCOL Rest/Stress 1 Lexiscan Day Radiopharmaceutical Dose (mCi) Administration Site Administered by Rest: Tc-99m 11 IV Katiuska Newman, CONTRACTS DIRECTOR Sestamibi Stress:Tc-99m 33 IV Katiuska Paty, CONTRACTS DIRECTOR Sestamibi Rest: 30-Jan-2025 60 Discovery 630 Stress: 30-Jan-2025 30 Discovery 630 0.4mg Lexiscan. Supine position only as patient was unable to lay prone. SPECT RESULTS Technical Quality: Good Raw Data Analysis: Normal Image Corrections: No attenuation or motion correction applied Summed Stress Score: 1 Summed Rest Score: 2 Summed Difference Score: 0 PERFUSION FINDINGS SPECT images demonstrate homogeneous tracer distribution throughout the myocardium. FUNCTIONAL RESULTS (calculated via Gated SPECT) Stress Image LV EF (%): 75 Stress EDV (mL):88 TID: 0.9 Stress ESV (mL):22 FUNCTIONAL FINDINGS: There is normal left ventricular systolic function. IMPRESSIONS Myocardial perfusion imaging is normal. Oriana Vega MD (Electronically Signed) Final Date: 03 February 2025 15:03 S
[2025-01-30 10:50] VITALS: BP 111/79; PULSE 77
== END 2025-01-30 09:00 | disposition home or self-care (01) ==
LOC: CDL 09:01
PROVIDERS: PCP Internal Medicine; Visit Provider Internal Medicine
DX: R07.9 Chest pain, unspecified (principal); I48.91 Unspecified atrial fibrillation
CPT/HCPCS: 36415; 78452; 93017; 96374; A9500; J2785

== ENCOUNTER 2025-01-31 06:51 | Outpatient (CLI) | payer MEDICARE, MEDICAID, SELFPAY ==
--- NOTE | 2025-01-31 07:01 | USCV_ITS ---
Mel Calderon Age: 64 Gender: F : 1960 Exam Date: 01/31/2025 07:06 Ordering Phys: Pk Rojas MD Technologist: Exam Location: [facility] [place] Indication: cp sob BP: 140 / 80 HR: 72 Rhythm: Sinus Technical Quality: Adequate MEASUREMENTS (Male / Female) Normal Values 2D ECHO LV Diastolic Diameter PLAX 4.6 cm 4.2 - 5.9 / 3.9 - 5.3 cm IVS Diastolic Thickness 1.1 cm 0.6 - 1.0 / 0.6 - 0.9 cm IVS Systolic Thickness 1.7 cm LVPW Diastolic Thickness 1.1 cm 0.6 - 1.0 / 0.6 - 0.9 cm LVPW Systolic Thickness 1.5 cm LVOT Diameter 2.2 cm LA Diameter 3.8 cm RA Systolic Volume 4C AL 50.1 ml RA Systolic Volume 4C MOD 45.6 ml Aorta at Sinotubular Diameter 2.9 cm IVC Diameter 1.6 cm M-MODE LA Ao Ratio MM 1.3 AV Cusp Separation MM 2.4 cm DOPPLER AV Peak Velocity 152.0 cm/s LVOT Peak Velocity 113.0 cm/s AV Area Cont Eq vti 3.0 cm squared AV Area Cont Eq pk 2.7 cm squared MV Peak Velocity 99.3 cm/s MV Area PHT 3.4 cm squared Mitral E to A Ratio 0.8 TV Peak Velocity 202.5 cm/s TR Peak Velocity 310.0 cm/s TR Peak Gradient 38.4 mmHg TV Peak E Velocity 91.0 cm/s PV Peak Velocity 111.0 cm/s FINDINGS Left Ventricle Normal left ventricular size, systolic function and wall thickness, with no regional wall motion abnormalities. Left ventricular ejection fraction is estimated at 55-60%. Normal diastolic function. Right Ventricle Normal right ventricular size and systolic function. Mild pulmonary hypertension, RVSP 41 mmHg. Right Atrium Normal right atrial size. Left Atrium Normal left atrial size. Mitral Valve No mitral valve stenosis. No mitral valve regurgitation. Structurally normal mitral valve. Aortic Valve No aortic valve stenosis. No aortic valve regurgitation. Tricuspid Valve Trace tricuspid valve regurgitation. Pulmonic Valve No pulmonary valve stenosis. No pulmonary valve regurgitation. Pericardium No pericardial effusion. Aorta Normal size aortic root and proximal ascending aorta. IVC Normal inferior vena cava. CONCLUSIONS 1. Normal biventricular size and systolic function. LV EF 55-60% 2. Normal LV diastolic dysfunction 3. Mild pulmonary hypertension, RVSP 41 mmHg. Piotr Abad MD, FACC (Electronically Signed) Final Date: 02 February 2025 23:54 S
== END 2025-01-31 06:52 | disposition home or self-care (01) ==
LOC: RAD 06:52
PROVIDERS: PCP Internal Medicine; Visit Provider Internal Medicine
DX: I48.91 Unspecified atrial fibrillation (principal); I27.20 Pulmonary hypertension, unspecified
CPT/HCPCS: 93306

== ENCOUNTER → 2025-04-19 11:20 | Outpatient (BNVA) | payer MEDICARE, MEDICAID, SELFPAY | PROVIDERS: PCP Internal Medicine; Visit Provider Internal Medicine Rheumatology | DX: M05.79 Rheumatoid arthritis with rheumatoid factor of multiple sites without organ or systems involvement (principal); Z79.899 Other long term (current) drug therapy; M47.816 Spondylosis without myelopathy or radiculopathy, lumbar region; M70.62 Trochanteric bursitis, left hip | CPT/HCPCS: 36415; 80076; 82306; 82310; 82565; 85025; 85651; 86140; 86480; 99214 ==